=== PATIENT | female | born 1990 | race Caucasian/White ===

== ENCOUNTER 2022-01-17 13:59 | Observation (INO) | payer OTHER, SELFPAY ==
[2022-01-17] VITALS (34 sets, daily range): BP systolic 90–138; BP diastolic 56–100; PULSE 74–114; RESP 14–22; TEMP 36.3–36.9; O2SAT 95–100
--- NOTE | ~2022-01-17 | US_ITS ---
EXAMINATION: US OB <= 14 weeks fetus DATE: 01/17/2022 15:34 INDICATION: Assess for ectopic during first trimester TECHNIQUE: Real-time pelvic ultrasound utilizing transvaginal probe was performed. The interpreting r adiologist was not present for the study. COMPARISON: None. FINDINGS: The uterus measures 8.2 x 5.2 x 5.8 cm. Thickened endometrial complex measuring 2.4 cm in thickness a t the fundus. No evident intrauterine gestational sac. The right ovary is not visualized with right a dnexal region obscured by shadowing bowel gas. The left ovary measures 3.4 x 2.1 x 2.5 cm. 2.6 x 1.6 x 1.9 cm anechoic cystic lesion at the left adnexa without definitive internal yolk sac or pole differential would include either a corpus luteum cyst. Massive flow with arterial and venous wavefo darleen identified at the left ovary on color Doppler. There is small amount of hypoechoic material at th e cul-de-sac which could represent complex fluid/hemoperitoneum. free fluid in the pelvis. IMPRESSION: 1. Thickened endometrial complex with no discernible internal gestational sac. Differential would inc lude early, failed or ectopic . Recommend gynecologic consultation and consider correlation with serial beta-hCG levels. 2. 2.6 cm cystic lesion at the left adnexa without evident internal yolk sac or pole which coul d represent a corpus luteum cyst although differential would include an ectopic . The region of the right adnexa is obscured. 3. Small amount of likely complex fluid in the cul-de-sac suspicious for hemoperitoneum.. Reviewed, dictated and finalized at location A. IMPRESSION: 1. Thickened endometrial complex with no discernible internal gestational sac. Differential would include early, failed or ectopic . Recommend gyneco logic consultation and consider correlation with serial beta-hCG levels. 2. 2.6 cm cystic lesion at the left adnexa without evident internal yolk sac or pole which could represent a corpus luteum cyst although differential wo uld include an ectopic . The region of the right adnexa is obscured. 3. Small amount of likely complex fluid in the cul-de-sac suspicious for hemope ritoneum..
--- NOTE | 2022-01-17 16:15 | PC.NURSE ---
unable to doppel FHR
--- NOTE | 2022-01-17 16:32 | ED.ABDPAIN ---
HPI - Abdominal Pain General Chief Complaint: Abdominal Pain Stated Complaint: abd pain, vag bleeding, 7 wks preg Time Seen by Provider: 01/17/22 16:14 Source: patient Mode of arrival: ambulatory Limitations: no limitations History of Present Illness HPI narrative: Patient is a 31-year-old female G4, P3 currently 7 weeks dated by last menstrual period presenting to the emergency department for evaluation of worsening right-sided lower abdominal pain and vaginal bleeding. Patient states that she has had significant right-sided lower abdominal pain and pelvic pain over the past 4 days. Pain is sharp in nature, severe in nature with radiation to the flank. She also reports radiation into her hip area. She denies any fever, chills, but does report nausea with worsening of the pain. She denies dysuria or hematuria. She reports vaginal bleeding with passage of blood clots. She denies brisk bleeding. Patient states she has had only some light spotting today. Patient was seen at [facility] and had only a small increase in her beta hCG. She had an inconclusive ultrasound. Patient was referred to this facility by Dr. 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 Related Data Allergies Allergy/AdvReac Type Severity Reaction Status Date / Time dextromethorphan Allergy Intermediate DISORIENTED, Verified 07/26/21 14:03 WEAK doxylamine Allergy Intermediate DISORIENTED, Verified 07/26/21 14:03 WEAK pseudoephedrine Allergy Intermediate DISORIENTED, Verified 07/26/21 14:03 WEAK tomato Allergy Mild TONGUE Verified 07/26/21 14:03 SWELLS adhesive Allergy Unknown INLFAMED Verified 07/26/21 14:03 AND SWOLLEN Review of Systems Review of Systems: CONSTITUTIONAL: Denies fever, chills, or sweats. CARDIOVASCULAR: Denies chest pain, palpitations, or edema. RESPIRATORY: Denies cough or dyspnea. GASTROINTESTINAL: Reports right-sided lower abdominal pain, nausea without vomiting, reports right lower pelvic pain and right flank pain. GENITOURINARY: Denies dysuria or hematuria. Reports vaginal bleeding. SKIN: Denies rash or itching. MUSCULOSKELETAL: Denies back pain, joint pain, or myalgia. NEUROLOGIC: Denies headache, numbness, or weakness. 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 Chronic cholecystitis Depression affecting Encounter for contraceptive surveillance Encounter for counseling regarding contraception Encounter for gynecological examination (general) (routine) without abnormal findings Encounter for other specified surgical aftercare Encounter for visit Encounter for test, result positive Encounter for supervision of normal first , first trimester Encounter for supervision of normal first , second trimester Encounter for supervision of normal in second trimester Encounter for supervision of normal in third trimester Encounter for surgical aftercare following surgery of digestive system Generalized anxiety disorder Group beta Strep positive Irregular menstruation anxiety Supervision of other high risk pregnancies, first trimester Supervision of other high risk pregnancies, second trimester Umbilical hernia with obstruction, without gangrene (05/07/18) Umbilical hernia without obstruction or gangrene Vaginal itching Yeast infection Family History Family History Mother Family history of diabetes mellitus in first degree relative Hypertension Asthma Family history of liver disease Diabetes mellitus Sibling Family history of diabetes mellitus in first degree relative Hypertension Diabetes mellitus Grandparent Family history of malignant neoplasm of male breast
[2022-01-17 16:57] LABS: Basophils Absolute Auto 0.1 K/mm3 (0.0-0.1); Basophils Percent Auto 0.4 % (0.2-1.2); Eosinophils Absolute Auto 0.1 K/mm3 (0-0.3); Eosinophils Percent Auto 0.8 % (0-4.4); Hematocrit 41.9 % (37.0-47.0); Hemoglobin 14.2 g/dL (12.0-15.0); Immature Granulocyte Absolute 0.07 K/mm3 (0.00-0.031); Immature Granulocyte Percent A 0.4 % (0-0.5); Lymphocytes Absolute Auto 2.01 K/mm3 (0.9-3.2); Lymphocytes Percent Auto 11.9 % (18.3-44.2); Mean Corpuscular HGB Conc 33.9 g/dl (32-36); Mean Corpuscular Hemoglobin 30.1 pg (26-34); Mean Platelet Volume 9.9 fl (7.4-10.4); Monocytes Absolute Auto 0.8 K/mm3 (0.1-0.6); Monocytes Percent Auto 4.7 % (2.6-8.5); Neutrophils Absolute Auto 13.8 K/mm3 (1.3-6.7); Neutrophils Percent Auto 81.8 % (45.5-73.1); Platelet Count Result 368 k/mm3 (150-375); Red Blood Count 4.71 M/mm3 (4.2-5.4); White Blood Count 16.9 K/mm3 (4.5-10.0)
--- NOTE | 2022-01-17 16:58 | PM.IMHP ---
H&P: HPI History of Present Illness Date/Time: 01/17/22 16:58 Chief Complaint: abdominal pain Narrative: Madisyn is a 31yo , LMP 11/30/21 who presented to the ER with acute onset RLQ pain. She has been having bleeding on and off. Went to [facility] on 01/14/22 where beta was 633 and US showed empty uterus w/ 2cm left simple cyst. Repeat beta on 01/16/22 was 700. She acutely developed RLQ pain this afternoon and was instructed by our office to come to the ER. US today shows thickened endometrium, with 2.6cm left adnexal cyst (no yolk sac or pole), with complex hemoperitoneum. She has not eaten anything today. 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 Chronic cholecystitis Depression affecting Encounter for contraceptive surveillance Encounter for counseling regarding contraception Encounter for gynecological examination (general) (routine) without abnormal findings Encounter for other specified surgical aftercare Encounter for visit Encounter for test, result positive Encounter for supervision of normal first , first trimester Encounter for supervision of normal first , second trimester Encounter for supervision of normal in second trimester Encounter for supervision of normal in third trimester Encounter for surgical aftercare following surgery of digestive system Generalized anxiety disorder Group beta Strep positive Irregular menstruation anxiety Supervision of other high risk pregnancies, first trimester Supervision of other high risk pregnancies, second trimester Umbilical hernia with obstruction, without gangrene (05/07/18) Umbilical hernia without obstruction or gangrene Vaginal itching Yeast infection Family History Family History Mother Family history of diabetes mellitus in first degree relative Hypertension Asthma Family history of liver disease Diabetes mellitus Sibling Family history of diabetes mellitus in first degree relative Hypertension Diabetes mellitus Grandparent Family history of malignant neoplasm of male breast Diabetes mellitus Family history of malignant neoplasm Other Family history of allergic disorder Social History Social History Smoking status: Never smoker Second hand tobacco smoke exposure: No Alcohol intake: never Meds Home Medications and Allergies Allergies Allergy/AdvReac Type Severity Reaction Status Date / Time dextromethorphan Allergy Intermediate DISORIENTED, Verified 07/26/21 14:03 WEAK doxylamine Allergy Intermediate DISORIENTED, Verified 07/26/21 14:03 WEAK pseudoephedrine Allergy Intermediate DISORIENTED, Verified 07/26/21 14:03 WEAK tomato Allergy Mild TONGUE Verified 07/26/21 14:03 SWELLS adhesive Allergy Unknown INLFAMED Verified 07/26/21 14:03 AND SWOLLEN Vital Signs Vital Signs - 24 hr 01/17/22 14:10 01/17/22 16:16 Temperature 97.3 F L Pulse Rate 107 H 86 Respiratory Rate 16 16 Blood Pressure 126/80 Pulse Oximetry 100 100 Oxygen Delivery Room Air Exam Const: General: cooperative and acute distress moderate Resp: Effort & Inspection: normal respiratory effort Cardio: Rate: regular rate GI: Inspection: distended GI Palp: Yes abdominal tenderness and Yes Soft to palpation : Speculum Exam - Vagina: vaginal bleeding Skin: General skin exam: normal color Neuro: General: patient oriented x3 Extrem: General: normal to inspection Psych: Appearance: grossly no
[2022-01-17 17:07] LABS: Alanine Aminotransferase 30 U/L (6-35); Albumin Level 4.6 g/dL (3.5-5.1); Alkaline Phosphatase 73 U/L (38-126); Anion Gap 12 mmol/L (8-16); Aspartate Amino Transferase 28 U/L (14-36); Bilirubin,Total 0.4 mg/dL (0.2-1.3); Blood Urea Nitrogen 13 mg/dL (7-17); Calcium 9.3 mg/dL (8.4-10.2); Carbon Dioxide 24 mmol/L (22-30); Chloride 99 mmol/L (98-107); Estimated CRCL calculation 108 ml/min; Estimated Glomerular Filt Rate > 60; Glucose 97 mg/dL (65-110); Potassium 3.5 mmol/L (3.4-5.0); Prothrombin Time 12.6 Seconds (11.1-14.7); Sodium 135 mmol/L (137-145)
[2022-01-17 17:08] LABS: Partial Thromboplastin Time 29.3 SECONDS (22.3-36.8)
--- NOTE | 2022-01-17 17:11 | WPDANESEPP ---
Anes - Eval Pre Procedure Procedure: Operation Date: 01/17/22 17:15 Proposed Procedures p Diagnostic Laparoscopy; Suction Dilation and Curettage - Madisyn Lomax MD Date/Time: 01/17/22 17:11 Pre Op Diagnosis: abd pain, vag bleeding, 7 wks preg Patient Data Age: 31 Gender: F Height: 1.52 m Weight: 82 kg Last Vital Signs Temp 36.3 C L 01/17/22 16:16 Pulse 86 01/17/22 16:16 Resp 16 01/17/22 16:16 BP 126/80 01/17/22 16:16 Pulse Ox 100 01/17/22 16:16 O2 Del Method Room Air 01/17/22 14:10 Allergies Allergy/AdvReac Type Severity Reaction Status Date / Time dextromethorphan Allergy Intermediate DISORIENTED, Verified 07/26/21 14:03 WEAK doxylamine Allergy Intermediate DISORIENTED, Verified 07/26/21 14:03 WEAK pseudoephedrine Allergy Intermediate DISORIENTED, Verified 07/26/21 14:03 WEAK tomato Allergy Mild TONGUE Verified 07/26/21 14:03 SWELLS adhesive Allergy Unknown INLFAMED Verified 07/26/21 14:03 AND SWOLLEN Laboratory Tests 01/17/22 01/17/22 01/17/22 16:48 16:48 16:49 WBC 16.9 K/mm3 H K/mm3 (4.5-10.0) RBC 4.71 M/mm3 M/mm3 (4.2-5.4) Hgb 14.2 g/dL g/dL (12.0-15.0) Hct 41.9 % % (37.0-47.0) MCV 89.0 fl fl (80-100) MCH 30.1 pg pg (26-34) MCHC 33.9 g/dl g/dl (32-36) RDW 13.0 % % (11.5-14.5) Plt Count 368 k/mm3 k/mm3 (150-375) MPV 9.9 fl fl (7.4-10.4) Immature Gran % (Auto) 0.4 % % (0-0.5) Neut % (Auto) 81.8 % H % (45.5-73.1) Lymph % (Auto) 11.9 % L % (18.3-44.2) [place] % (Auto) 4.7 % % (2.6-8.5) Eos % (Auto) 0.8 % % (0-4.4) Baso % (Auto) 0.4 % % (0.2-1.2) Lymph # (Auto) 2.01 K/mm3 K/mm3 (0.9-3.2) [place] # (Auto) 0.8 K/mm3 H K/mm3 (0.1-0.6) Eos # (Auto) 0.1 K/mm3 K/mm3 (0-0.3) Baso # (Auto) 0.1 K/mm3 K/mm3 (0.0-0.1) Abs Immat Gran (auto) 0.07 K/mm3 H K/mm3 (0.00-0.031) Absolute Neuts (auto) 13.8 K/mm3 H K/mm3 (1.3-6.7) Absolute Nucleated RBC 0.0 K/mm3 K/mm3 (0.0-0.012) Nucleated RBC % 0.0 % % (0.0-0.2) PT 12.6 Seconds Seconds (11.1-14.7) INR 1.0 APTT 29.3 SECONDS SECONDS (22.3-36.8) Sodium 135 mmol/L L mmol/L (137-145) Potassium 3.5 mmol/L mmol/L (3.4-5.0) Chloride 99 mmol/L mmol/L (98-107) Carbon Dioxide 24 mmol/L mmol/L (22-30) Anion Gap 12 mmol/L mmol/L (8-16) BUN 13 mg/dL mg/dL (7-17) Creatinine 0.60 mg/dL L mg/dL (0.7-1.0) Estim Creat Clear Calc 108 ml/min ml/min Estimated GFR > 60 (59 - ) Glucose 97 mg/dL mg/dL (65-110) Calcium 9.3 mg/dL mg/dL (8.4-10.2) Total Bilirubin 0.4 mg/dL mg/dL (0.2-1.3) AST 28 U/L U/L (14-36) ALT 30 U/L U/L (6-35) Alkaline Phosphatase 73 U/L U/L (38-126) Total Protein 8.0 g/dL g/dL (6.3-8.2) Albumin 4.6 g/dL g/dL (3.5-5.1) Beta HCG, Quant Pending Patient hx anesthesia problems: none Family hx anesthesia problems: none Results Review: All pre-operative results and documents have been reviewed as part of the pre-operative evaluation. 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
--- NOTE | 2022-01-17 17:17 | WPDHPUPDATE1 ---
History and Physical Update Update Date/Time: 01/17/22 17:17 History and Physical has been reviewed, including an updated exam of the patient. There are NO changes in the patient's condition. Risks, benefits, and alternatives have been discussed and questions answered. Patient agrees to proceed with procedure.
[2022-01-17] MEDS: SODIUM CHLORIDE 0.9% IV 1,000 ML 999 ML IV CONT (17:33)
--- NOTE | 2022-01-17 17:33 | PC.NURSE ---
Pt did not want pain meds at this time
--- NOTE | 2022-01-17 17:41 | P.PNAN_ITS ---
Anes - Eval Final PreProcedure Day of Procedure 01/17/22 17:41 Patient weight: obese Heart: regular rate and rhythm Lungs: clear to auscultation Airway: Mallampati scale class II Neurological: alert and oriented Last oral intake: >/= 8 hours ASA classification: III Emergent: no Anesthetic plan: proceed Anesthesia type and monitoring: general ETT and standard monitoring Results Review: All pre-operative results and documents have been reviewed as part of the pre- operative evaluation. Informed Consent: The patient's anesthetic plan and its attendant risks and benefits were discussed with the patient/family/POA. Questions were solicited and answers provided to the satisfaction of the patient/family/POA.
[2022-01-17] MEDS: SCOPOLAMINE 1.5 MG PATCH TRANSDERM (18:00)
[2022-01-17] MEDS: BUPIVACAINE/EPINEPHRINE 0.25% 50 ML VIAL 30 ML INFILTRATE (18:23)
[2022-01-17] MEDS: LACTATED RINGERS 1,000 ML 30 ML IV CONT ×2 (18:58)
--- NOTE | 2022-01-17 19:04 | W.PM.PROC2 ---
Procedure Note - Detailed Date of Procedure 01/17/22 Pre-op Diagnosis abd pain, vag bleeding, 7 wks preg Post-op Diagnosis Other (ruptured ectoptic ) Procedure Performed Laparoscopic right salpingectomy and removal of ectopic with suction D&C Surgeon Madisyn Lomax MD Globe [employer] Dominguez Anesthesia General Indications Madisyn is a 31yo , LMP 11/30/21 who presented to the ER with acute onset RLQ pain. She has been having bleeding on and off. Went to [facility] ER on 01/14/22 where beta was 633 and US showed empty uterus w/ 2cm left simple cyst. Repeat beta on 01/16/22 was 700. She acutely developed RLQ pain this afternoon and was instructed by our office to come to the ER. US today shows thickened endometrium, with 2.6cm left adnexal cyst (no yolk sac or pole), with complex hemoperitoneum concerning for ruptured ectopic. Findings Uterus sounded to 11cm, cervix 0.5cm dilated with vaginal bleeding. Multiple omental adhesions to the upper abdomen. Hemoperitoneum of ~50cc, right fallopian tube ectopic and bleeding from the fimbriated end. Suction D&C performed w/o issue; 3 passes made. Good hemostasis at end of case. Description of Procedure Madisyn was taken to the operating room where she was placed under general endotracheal anesthesia without complications. She was then prepped and draped in the usual sterile fashion in the dorsal lithotomy position with her arms tucked at her side and a strap over her chest. A time-out was performed and no preoperative antibiotics were indicated. A straight catheterization was performed. A bivalve speculum was placed in the vagina and the cervix was easily identified. The anterior lip of the cervix was grasped with a single-tooth tenaculum. The cervix was serially dilated and the uterus was then sounded. A diagnostic uterine manipulator was then placed without complications. My gloves were then changed and my attention was turned to the abdomen. An umbilical incision was made. A 5 mm trocar was placed under direct visualization without complications. Once abdominal placement was confirmed the abdomen was insufflated with carbon dioxide gas. Multiple omental adhesions were noted in the upper abdomen. The patient was then placed in steep Trendelenburg where the hemoperitoneum was then noted. Two additional 5mm ports were placed in the right and left lower quadrant under direct visualization without complications. The uterus was elevated, and the right fallopian tube was noted to be bleeding with the ectopic . The proximal fallopian tube was grasped with the LigaSure device, cross clamped, coagulated, and transected. The mesosalpinx was then serially clamped, coagulated and transected. The fallopian tube was then free. The left lower quadrant port was upsized to a 12mm. A bag was placed within the abdomen and the right fallopian tube with ectopic was placed within the bag. The bag containing the tube and ectopic were then removed from the abdomen without complications. The surgical site was examined and good hemostasis was noted. The pelvis was then irrigated and suctioned free of all clot and debris. All instruments were removed from the abdomen. The pneumoperitoneum was released. The 3 laparoscopic incisions were closed using 4 -0 Monocryl in a running subcuticular fashion. The incisions were then covered with Dermabond and infiltrated using 0.25% Marcaine with epinephrine for better pain control. Attention was then turned down below where the uterine manipulator was removed. A bivalve speculum was placed within the vagina. The cervix was grasped with a tenaculum. The cervix was serially dilated. A curved 7 [place] suction curettage was then placed within the uterine cavity. Once suction was applied, a significant amount of clots and debris were removed from the uterus. Two additional passes were made and no further clots or debris were noted. Paulo
[2022-01-17] MEDS: fentaNYL CITRATE INJ (*CRX) 100 MCG/2 ML VIAL 25 MCG IV PUSH ×6 (19:15→19:25)
[2022-01-17] MEDS: HYDROmorphone HCL INJ (*CRX) 1 MG/ML SYR 0.5 MG IV PUSH ×2 (19:35→19:43)
[2022-01-17] MEDS: DOXYCYCLINE HYCLATE 100 MG TABLET 200 MG PO (19:58)
--- NOTE | 2022-01-17 20:31 | PC.NURSE ---
pt to 1st floor L&D from PACU @2010
--- NOTE | 2022-01-17 20:49 | PC.NURSE ---
SCD's applied to bilateral lower extremities.
[2022-01-17] MEDS: KETOROLAC 30 MG/ML VIAL (*BKC) IV PUSH (21:24)
[2022-01-18 01:09] VITALS: PULSE 114; O2SAT 99
[2022-01-18 01:10] VITALS: BP 112/61; PULSE 105
[2022-01-18] MEDS: HYDROcodone/acetaminophen (*CRX) 5-325 MG TABLET 1 TAB PO (01:16)
[2022-01-18] MEDS: KETOROLAC 30 MG/ML VIAL (*BKC) IV PUSH (03:22)
[2022-01-18 05:13] VITALS: BP 98/58; PULSE 93; PULSE 95; O2SAT 99
[2022-01-18 05:16] VITALS: TEMP 36.9
[2022-01-18] MEDS: DOCUSATE SODIUM 100 MG CAPSULE PO (07:37)
[2022-01-18] MEDS: HYDROcodone/acetaminophen (*CRX) 10-325 MG TABLET 1 TAB PO ×2 (07:37→11:55)
[2022-01-18 08:24] VITALS: PULSE 94; O2SAT 99
[2022-01-18 08:25] VITALS: BP 103/56; PULSE 87; PULSE 91; PULSE 92; RESP 15; TEMP 37.3; O2SAT 100; O2SAT 96
[2022-01-18] MEDS: PHENOL/SOD PHENO SPRAY CHERRY (*BKC) 1 SPRAY MUCOUS MEM (08:52)
--- NOTE | 2022-01-18 09:09 | PM.GYNPNOP ---
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 and plan (1) S/P laparoscopic procedure: Code(s): Z98.890 - Other specified postprocedural states Status: Acute (2) Ruptured ectopic : Code(s): O00.90 - Unspecified ectopic without intrauterine Status: Acute Postoperative Procedures: Procedures Operation Date: 01/17/22 17:15 Actual Procedure Side Surgeon p Diagnostic Laparoscopy with Right Salpingectomy and Removal of Ectopic , Suction Dilation and Curettage Madisyn Lomax MD Postoperative day: 1 Postoperative status: doing well Postoperative plan: routine post-op care and discharge Time Spent With Patient Time: Total time spent is greater than 50% in coordination of care (as documented) at patient's floor/unit and/or counseling patient: Time with patient: less than 15 minutes TANK TRUCK ENGINE MECHANIC- PN:Subj Post-Op Subjective Date/time seen: 01/18/22 09:09 Interval history: POD #1 Madisyn reports doing well this morning. Her pain is much less than last night. She has tolerated regular diet. She has voided. She has ambulated w/o s/sx of anemia. 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 Review of Systems Constitutional: Constitutional: Denies chills, Denies fever(s) and Denies headache(s) Eyes: Eyes: Denies change in vision ENT: Denies dizziness and Denies headache(s) Cardiovascular: Cardiovascular: Denies chest pain, Denies palpitations and Denies dyspnea Respiratory: Respiratory: Denies cough and Denies dyspnea Gastrointestinal: Gastrointestinal: Denies nausea and Denies vomiting Neurologic: Denies dizziness and Denies headache(s) Endocrine: Endocrine: Denies palpitations Exam Const: General: cooperative, comfortable and no acute distress Nutritional Appearance: obese Orientation/consciousness: patient oriented x3 Resp: Effort & Inspection: normal respiratory effort Cardio: Rate: regular rate GI: Inspection: non-distended and incision (x3, c/d/i covered w/ dermabond) GI Palp: No abdominal tenderness and Yes Soft to palpation : Other: normal vaginal bleeding Skin: General skin exam: normal color Neuro: General: patient oriented x3 Extrem: General: normal to inspection Psych: Appearance: grossly normal Affect: normal affect Attitude: cooperative TANK TRUCK ENGINE MECHANIC - PN: Obj Data Vital Signs Vital Signs: Vital Signs - 24 hr 01/17/22 14:10 01/17/22 16:16 01/17/22 16:20 Temperature 97.3 F L Pulse Rate 107 H 86 Respiratory Rate 16 16 Blood Pressure 126/80 Pulse Oximetry 100 100 98 Oxygen Delivery Room Air Oxygen Flow Rate 01/17/22 16:21 01/17/22 17:01 01/17/22 17:16 Temperature Pulse Rate Respiratory Rate Blood Pressure 123/85 130/96 H 135/100 H Pulse Oximetry 98 Oxygen Delivery Oxygen Flow Rate 01/17/22 17:31 01/17/22 17:42 01/17/22 18:58 Temperature 98.3 F 98.3 F 98 F Pulse Rate 74 93 Respiratory Rate 16 22 H Blood Pressure 138/91 H 106/57 L Pulse Oximetry 100 100 Oxygen Delivery Simple Face Mask Oxygen Flow Rate 10 01/17/22 19:00 01/17/22 19:15 01/17/22 19:30 Temperature Pulse Rate 98 90 106 H Respiratory Rate 18 16 15 Blood Pressure 109/60 110/79 115/75 Pulse Oximetry 100 100 98 Oxygen Delivery Simple Face Mask Room Air Room Air Oxygen Flow Rate 10 01/17/22 19:45 01/17/22 19:55 01/17/22 20:00 Temperature Pulse Rate 80 99 98 Respiratory Rate 14 14 18 Blood Pressure 106/69 107/68 105/64 Pulse Oximetry 96 99 99 Oxygen Delivery Room Air Room Air Room Air Oxygen Flow Rate 01/17/22 20:19 01/17/22 20:20 01/17/22 20:24 Temperature Pulse Rate 98 Respiratory Rate Blood Pressure 90/57 L Pulse Oximetry 96 96 Oxygen Delivery Oxygen Flow Rate 01/17/22 20:29 01/17/22 20:30 01/17/22 20:34 Temperature Pulse Rate 99 Respiratory Rate Blood Pressure 95/63 L Pulse Oximetry 96 98 Oxygen Delivery Oxygen Flow Rate 01/17/22 20:39 09/0
--- NOTE | 2022-01-18 09:52 | PC.NURSE ---
0950--Pt. reports that she is feeling better and would like to take a nap prior to DC home. Instructed pt. to call out when she is ready for me to go over DC paperwork with her.
[2022-01-18] MEDS: IBUPROFEN 600 MG TABLET PO (11:55)
--- NOTE | 2022-01-23 07:42 | P.DS_ITS ---
DS: Admitting Diagnosis Discharge Date 01/18/22 Admitting Diagnosis Vaginal bleeding of unknown location but concerned for ruptured ectopic DS: Discharge Diagnosis Discharge Diagnosis Plan same s/p salpingectomy with suction D&C DS: Summary Hospital Course Hospital Course: She was admitted for surgery. She underwent laparoscopic right salpingectomy due to ruptured ectopic and suction D&C due to thickened endometrium with vaginal bleeding (beta HCGs inappropriately rising). Surgery was uncomplicated. She stayed overnight for pain control. By next morning, her pain was controlled. She was voiding, ambulating and tolerating regular diet. Status at Discharge Functional status at discharge: independent ambulation Overall status at discharge: patient is back to baseline Time Spent with Patient Time attestation: Total time spent providing and/or coordinating discharge services: Exam Const: General: cooperative, comfortable and no acute distress Nutritional Appearance: obese Orientation/consciousness: patient oriented x3 Resp: Effort & Inspection: normal respiratory effort Auscultation: clear to auscultation bilaterally Cardio: Rate: regular rate GI: Inspection: non-distended and incision (x3; C/D/I covered with dermabond) GI Palp: Yes abdominal tenderness (appropriate) and Yes Soft to palpation Auscultation: normal bowel sounds : Other: very light bleeding on pad Skin: General skin exam: normal color Neuro: General: patient oriented x3 Extrem: General: normal to inspection Psych: Appearance: grossly normal Affect: normal affect Attitude: c ooperative DS: Data Data Completed and Pending Completed studies during hospitalization: Pending at discharge 01/17/22 18:49 Surgical [PTH] Routine Surgical [PTH] Routine Discharge Plan Discharge Attending physician on discharge: Madisyn Lomax Consulting providers: Jl Spears Discharging Clinician: Madisyn Lomax Anticipated Discharge Date/Time: 01/18/22 10:00 Patient Disposition: Home, Self-Care Activity: may shower and pelvic rest Diet: as tolerated and regular Discharge Instructions: no heavy lifting over 10 pounds for 2 weeks Stand Alone Forms: General Discharge Information, Work/School Release IP Follow-up/Referrals: Amanda,KAREEM Bass [Primary Care Provider] - Discharge Medications: New hydrocodone-acetaminophen 5-325 mg Tablet 1 tablet PO Q3H PRN (Reason: Pain Rated 5 Or Less) 3 Days Qty: 20 0RF docusate sodium 100 mg Capsule 100 mg PO BID 10 Days Qty: 20 0RF ibuprofen 600 mg Tablet 600 mg PO Q6H PRN (Reason: Cramping) 10 Days Qty: 40 0RF ibuprofen 800 mg tablet 800 mg PO TID Qty: 40 0RF docusate sodium [Colace] 100 mg capsule 100 mg PO BID Qty: 20 0RF hydrocodone-acetaminophen 5-325 mg tablet 1 tablet PO Q4H PRN (Reason: pain) 3 Days Qty: 18 0RF hydrocodone-acetaminophen 5-325 mg tablet 1 tablet PO Q4H PRN (Reason: pain) 3 Days Qty: 18 0RF Date of admission: 01/17/22 20:06 Primary Care Provider: AmandaShelia Admitting Provider: Madisyn Lomax Attending physician on admission: Madisyn Lomax Condition: Stable
== END 2022-01-18 12:02 | disposition home or self-care (01) ==
LOC: ANHED 16:20 → ANHSURGERY 16:56 → ANHOBPP 20:11
PROVIDERS: Admitting Provider Obstetrics & Gynecology; Emergency Provider Emergency Medicine; PCP Nurse Practitioner Adult Health; Visit Provider Obstetrics & Gynecology
PROC: (CPT 49320; principal; 2022-01-17 17:15)
DX: O00.101 Right tubal pregnancy without intrauterine pregnancy (principal); K66.1 Hemoperitoneum; Z3A.01 Less than 8 weeks gestation of pregnancy
CPT/HCPCS: 59151; 36415; 76801; 80053; 84702; 85025; 85461; 85610; 85730; 88302; 88305; 96361; 96374; 96375; 99285; A9270; G0378; G0379; J0330; J1170; J1885; J2250; J2405; J2704; J3010; J7030; J7120

== ENCOUNTER 2022-11-10 04:44 | Emergency (ER) | payer OTHER, SELFPAY ==
--- NOTE | ~2022-11-10 | US_ITS ---
US OB <=14 wk fetus w TV DATE: 11/10/2022 07:53 INDICATION: Rule out ectopic ; history of right salpingectomy for ectopic , Septemb er 2021 TECHNIQUE: Real-time imaging via transabdominal and transvaginal approaches COMPARISON: 01/17/2022 pelvic ultrasound nd FINDINGS: The uterus measures approximately 10 cm height, 4.6 cm AP dimension. There is mild free fluid including probable blood clot in the posterior cul-de-sac. There is an irregular fluid containing structure in the endometrial cavity of the uterus, measuring a pproximately 7 x 11 x 9 mm. There is irregular surrounding hyperechogenicity. This is a nonspecific f luid collection and might represent an abnormal or failed gestational sac versus nonspecific endometr ial fluid. The ovaries are not well-defined. IMPRESSION: Mild free fluid including blood in the posterior cul-de-sac. Ovaries and adnexal areas are not well-defined. Nonspecific irregular fluid collection in the endometrial cavity. Ectopic gestation with some bleeding cannot be excluded. Reviewed, dictated and finalized at [facility]. Reviewed, dictated and finalized at location [facility].
[2022-11-10 04:48] VITALS: BP 135/79; PULSE 98; RESP 18; TEMP 36.3; O2SAT 100
--- NOTE | 2022-11-10 04:53 | ED.GENADULT ---
HPI - General Adult General Chief complaint: Vaginal Bleeding <Jorge Matos MD - Last Filed: 11/11/22 18:14> Stated complaint: approx 7 weeks , pain and bleeding <Jorge Matos MD - Last Filed: 11/11/22 18:14> Time Seen by Provider: 11/10/22 04:51 <Jorge Matos MD - Last Filed: 11/11/22 18:14> History of Present Illness HPI narrative: 32-year-old female presented to the emergency department for evaluation of vaginal bleeding. Patient states she suspects she is approximately 7 weeks . Patient reports she has had some abdominal cramping with some spotting. Patient reports she does have a prior history of loss of number. Patient's blood type is O+ per EMR. <Jorge Matos MD - Last Filed: 11/11/22 18:14> Related Data Allergies/adverse reactions: Allergies Allergy/AdvReac Type Severity Reaction Status Date / Time dextromethorphan Allergy Intermediate DISORIENTED, Verified 11/11/22 14:25 WEAK doxylamine Allergy Intermediate DISORIENTED, Verified 11/11/22 14:25 WEAK pseudoephedrine Allergy Intermediate DISORIENTED, Verified 11/11/22 14:25 WEAK tomato Allergy Mild TONGUE Verified 11/11/22 14:25 SWELLS adhesive Allergy Unknown INLFAMED Verified 11/11/22 14:25 AND SWOLLEN dermabond Allergy Intermediate Rash Uncoded 11/10/22 04:45 <Jorge Matos MD - Last Filed: 11/11/22 18:14> Review of Systems Review of Systems: All systems reviewed & are unremarkable except as noted in HPI and below <Jorge Matos MD - Last Filed: 11/11/22 18:14> PMFSH Past Medical History Medical History: Medical History Anemia affecting Asthma Bacterial vaginosis Body mass index [BMI] 28.0-28.9, adult (07/08/17) 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 Chronic cholecystitis Depression affecting Encounter for contraceptive surveillance Encounter for counseling regarding contraception Encounter for gynecological examination (general) (routine) without abnormal findings Encounter for other specified surgical aftercare Encounter for visit Encounter for test, result positive Encounter for supervision of normal first , first trimester Encounter for supervision of normal first , second trimester Encounter for supervision of normal in second trimester Encounter for supervision of normal in third trimester Encounter for surgical aftercare following surgery of digestive system Generalized anxiety disorder Group beta Strep positive Irregular menstruation anxiety Seizure Supervision of other high risk pregnancies, first trimester Supervision of other high risk pregnancies, second trimester Umbilical hernia with obstruction, without gangrene (05/07/18) Umbilical hernia without obstruction or gangrene Vaginal itching Yeast infection <Jorge Matos MD - Last Filed: 11/11/22 18:14> Family History Family History: Family History Mother Family history of diabetes mellitus in first degree relative Hypertension Asthma Family history of liver disease Diabetes mellitus Sibling Family history of diabetes mellitus in first degree relative Hypertension Diabetes mellitus Grandparent Family history of malignant neoplasm of male breast Diabetes mellitus Family history of malignant neoplasm Other Family history of allergic disorder <Jorge Matos MD - Last Filed: 11/11/22 18:14> Social History Social History: Social History Smoking status: Never smoker Second hand tobacco smoke exposure: No Alcohol intake: never <Jorge Matos MD - Last Filed: 11/11/22 18:14> Exam Narrative: APPEARANCE: Well appearing, no pain, no distress, well-nourished
[2022-11-10] MEDS: SODIUM CHLORIDE 0.9% IV 1,000 ML 999 ML IV CONT (05:07)
[2022-11-10 05:15] LABS: Basophils Absolute Auto 0.1 K/mm3 (0.0-0.1); Basophils Percent Auto 0.5 % (0.2-1.2); Eosinophils Absolute Auto 0.2 K/mm3 (0-0.3); Eosinophils Percent Auto 1.7 % (0-4.4); Hematocrit 40.3 % (37.0-47.0); Hemoglobin 13.2 g/dL (12.0-15.0); Immature Granulocyte Absolute 0.05 K/mm3 (0.00-0.031); Immature Granulocyte Percent A 0.5 % (0-0.5); Lymphocytes Absolute Auto 3.17 K/mm3 (0.9-3.2); Lymphocytes Percent Auto 29.1 % (18.3-44.2); Mean Corpuscular HGB Conc 32.8 g/dl (32-36); Mean Corpuscular Hemoglobin 30.2 pg (26-34); Mean Corpuscular Volume 92.2 fl (80-100); Monocytes Absolute Auto 0.7 K/mm3 (0.1-0.6); Monocytes Percent Auto 6.6 % (2.6-8.5); Neutrophils Absolute Auto 6.7 K/mm3 (1.3-6.7); Neutrophils Percent Auto 61.6 % (45.5-73.1); Platelet Count Result 338 k/mm3 (150-375); Red Blood Count 4.37 M/mm3 (4.2-5.4); Red Cell Distribution Width 13.4 % (11.5-14.5); White Blood Count 10.9 K/mm3 (4.5-10.0)
[2022-11-10 05:20] LABS: Appearance Urine Cloudy (Clear); Bacteria Urine 2+ /hpf; Bilirubin Urine Negative (Negative); Blood Urine 3+ (Negative); Color Urine Yellow (Yellow); Glucose Urine UA Negative (Negative); Ketones Urine Negative (Negative); Leukocyte Esterase Ur Trace LEU/UL (Negative); Nitrate Urine Negative (Negative); Non Pathogenic Casts 0-2; Protein Urine 1+ mg/dL (Negative); Specific Grav Ur 1.022 (1.001-1.035); Squamous Epithelial Cell Urine Moderate /hpf (Few); pH Urine 5.5 (5.0-9.0)
[2022-11-10 05:27] LABS: Alanine Aminotransferase 26 U/L (6-35); Albumin Level 4.3 g/dL (3.5-5.1); Alkaline Phosphatase 63 U/L (38-126); Anion Gap 9 mmol/L (8-16); Aspartate Amino Transferase 25 U/L (14-36); Bilirubin,Total 0.3 mg/dL (0.2-1.3); Blood Urea Nitrogen 8 mg/dL (7-17); Carbon Dioxide 26 mmol/L (22-30); Chloride 104 mmol/L (98-107); Estimated CRCL calculation 114 ml/min; Estimated Glomerular Filt Rate > 60; Glucose 105 mg/dL (65-110); Potassium 3.5 mmol/L (3.4-5.0); Sodium 139 mmol/L (137-145)
[2022-11-10 05:28] LABS: Add Urine Microscopic? YES; INR 0.9; Prothrombin Time 12.4 Seconds (11.1-14.7)
[2022-11-10 05:29] LABS: Partial Thromboplastin Time 29.3 SECONDS (22.3-36.8)
[2022-11-10 05:43] VITALS: BP 109/83; PULSE 85; RESP 14; O2SAT 100
[2022-11-10] MEDS: HYDROmorphone HCL INJ (*CRX) 1 MG/ML SYR 0.5 MG IV PUSH (05:56)
[2022-11-10 10:14] VITALS: BP 127/85; PULSE 83; RESP 18; O2SAT 100
== END 2022-11-10 10:17 | disposition home or self-care (01) ==
PROVIDERS: Emergency Medicine; Emergency Provider Preventive Medicine Aerospace Medicine; PCP Obstetrics & Gynecology
DX: O20.9 Hemorrhage in early pregnancy, unspecified (principal); O99.511 Diseases of the respiratory system complicating pregnancy, first trimester; J45.909 Unspecified asthma, uncomplicated; O99.611 Diseases of the digestive system complicating pregnancy, first trimester; K81.1 Chronic cholecystitis; O99.341 Other mental disorders complicating pregnancy, first trimester; F41.9 Anxiety disorder, unspecified; F32.A Depression, unspecified; Z3A.01 Less than 8 weeks gestation of pregnancy
CPT/HCPCS: 36415; 76801; 76817; 80053; 81001; 84702; 85025; 85610; 85730; 87086; 96361; 96374; 99284; J1170; J7030

== ENCOUNTER 2022-11-11 13:43 | Emergency (ER) | payer OTHER, SELFPAY ==
[2022-11-11] VITALS (24 sets, daily range): BP systolic 98–125; BP diastolic 62–84; PULSE 90–97; RESP 16–18; TEMP 37; O2SAT 98–100
--- NOTE | ~2022-11-11 | US_ITS ---
EXAMINATION: US OB <=14 wk fetus w TV DATE: 11/11/2022 16:12 INDICATION: Pelvic pain TECHNIQUE: Real-time pelvic ultrasound utilizing both a transvaginal and transabdominal probe was pe rformed. The interpreting radiologist was not present for the study. COMPARISON: None. FINDINGS: The uterus measures 9.2 x 3.7 x 5.2 cm. The endometrial complex measures 1.7 cm in maximal thickness . There is a 4-5 mm anechoic cystic lesion at the posterior periphery of the endometrial complex at t he fundus, potentially an endometrial complex. No discernible internal yolk sac or pole which c ould be due to early stage of . section scar along the anterior lower uterine segme nt. The right ovary measures 3.0 x 1.3 x 2.0 cm. The left ovary measures 3.2 x 2.5 x 3.0 cm. There is a s mall amount of free fluid in the pelvis. IMPRESSION: 1. 4-5 mm anechoic cystic lesion at the posterior periphery of the endometrial complex without discer nible yolk sac or pole for which differential would remain early, failed or ectopic . Presuming this represents a gestational sac, this would correspond with an estimated gestational age of 5 weeks 0 day(s) +/- 3 day(s) with ultrasound estimated date of delivery (EYAD) of 07/14/2023. 2. Decreased small amount of free fluid in the pelvis. Reviewed, dictated and finalized at location A. IMPRESSION: 1. 4-5 mm anechoic cystic lesion at the posterior periphery of the endometrial complex without discernible yolk sac or pole for which differential would remain early, failed or ectopic . Presuming this represents a gestati onal sac, this would correspond with an estimated gestational age of 5 weeks 0 day(s) +/- 3 day(s) with ultrasound estimated date of delivery (EYAD) of 07/14/19 24. 2. Decreased small amount of free fluid in the pelvis.
[2022-11-11 15:09] LABS: Basophils Percent Auto 0.4 % (0.2-1.2); Eosinophils Absolute Auto 0.2 K/mm3 (0-0.3); Eosinophils Percent Auto 1.9 % (0-4.4); Hematocrit 37.2 % (37.0-47.0); Hemoglobin 12.4 g/dL (12.0-15.0); Immature Granulocyte Absolute 0.04 K/mm3 (0.00-0.031); Immature Granulocyte Percent A 0.4 % (0-0.5); Lymphocytes Absolute Auto 2.17 K/mm3 (0.9-3.2); Lymphocytes Percent Auto 22.3 % (18.3-44.2); Mean Corpuscular HGB Conc 33.3 g/dl (32-36); Mean Corpuscular Hemoglobin 30.4 pg (26-34); Mean Corpuscular Volume 91.2 fl (80-100); Mean Platelet Volume 10.2 fl (7.4-10.4); Monocytes Absolute Auto 0.7 K/mm3 (0.1-0.6); Monocytes Percent Auto 7.2 % (2.6-8.5); Neutrophils Absolute Auto 6.6 K/mm3 (1.3-6.7); Neutrophils Percent Auto 67.8 % (45.5-73.1); Platelet Count Result 302 k/mm3 (150-375); Red Blood Count 4.08 M/mm3 (4.2-5.4); Red Cell Distribution Width 13.5 % (11.5-14.5); White Blood Count 9.7 K/mm3 (4.5-10.0)
[2022-11-11] MEDS: MORPHINE SULFATE (*CRX) 2 MG/ML INJ IV PUSH (15:14)
[2022-11-11 15:19] LABS: Alanine Aminotransferase 30 U/L (6-35); Albumin Level 4.1 g/dL (3.5-5.1); Alkaline Phosphatase 57 U/L (38-126); Anion Gap 5 mmol/L (8-16); Aspartate Amino Transferase 26 U/L (14-36); Bilirubin,Total 0.4 mg/dL (0.2-1.3); Blood Urea Nitrogen 7 mg/dL (7-17); Calcium 9.3 mg/dL (8.4-10.2); Carbon Dioxide 29 mmol/L (22-30); Chloride 103 mmol/L (98-107); Estimated CRCL calculation 100 ml/min; Estimated Glomerular Filt Rate > 60; Glucose 100 mg/dL (65-110); Lipase 115 U/L (23-300); Potassium 3.6 mmol/L (3.4-5.0); Sodium 137 mmol/L (137-145)
--- NOTE | 2022-11-11 18:01 | ED.GENADULT ---
HPI - General Adult General Chief complaint: Abdominal Pain Stated complaint: abd pain//ectopic Time Seen by Provider: 11/11/22 14:34 History of Present Illness HPI narrative: Patient is a 32-year-old female who presents ER with lower abdominal pain. Seen in the ER yesterday and diagnosed with potentially ruptured ectopic. She had return of pain today and after talking to her OBs office she came back here for further evaluation due to possibility of having a laparoscopic procedure. Patient already does not have a right-sided ovarian tube due to previous ectopic. Patient reports she had some bright red blood yesterday but it is darker today coming from her vagina. No urinary frequency urgency or dysuria. Related Data Allergies Allergy/AdvReac Type Severity Reaction Status Date / Time dextromethorphan Allergy Intermediate DISORIENTED, Verified 11/11/22 14:25 WEAK doxylamine Allergy Intermediate DISORIENTED, Verified 11/11/22 14:25 WEAK pseudoephedrine Allergy Intermediate DISORIENTED, Verified 11/11/22 14:25 WEAK tomato Allergy Mild TONGUE Verified 11/11/22 14:25 SWELLS adhesive Allergy Unknown INLFAMED Verified 11/11/22 14:25 AND SWOLLEN dermabond Allergy Intermediate Rash Uncoded 11/10/22 04:45 Review of Systems Review of Systems: All systems reviewed & are unremarkable except as noted in HPI and below Constitutional: Constitutional: Denies chills, Denies fatigue and Denies fever(s) ENT: Denies nasal congestion and Denies sore throat Cardiovascular: Cardiovascular: Denies chest pain, Denies rapid heart rate and Denies radiating jaw, neck or arm pain Respiratory: Respiratory: Denies cough and Denies dyspnea Gastrointestinal: Gastrointestinal: Reports abdominal pain, Denies nausea and Denies vomiting Genitourinary: Genitourinary: Reports abnormal vaginal bleeding, Denies nocturia, Denies dysuria, Reports pelvic pain and Denies vaginal discharge [facility] Past Medical History Medical History Anemia affecting Asthma Bacterial vaginosis Body mass index [BMI] 28.0-28.9, adult (07/08/17) 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 Chronic cholecystitis Depression affecting Encounter for contraceptive surveillance Encounter for counseling regarding contraception Encounter for gynecological examination (general) (routine) without abnormal findings Encounter for other specified surgical aftercare Encounter for visit Encounter for test, result positive Encounter for supervision of normal first , first trimester Encounter for supervision of normal first , second trimester Encounter for supervision of normal in second trimester Encounter for supervision of normal in third trimester Encounter for surgical aftercare following surgery of digestive system Generalized anxiety disorder Group beta Strep positive Irregular menstruation anxiety Seizure Supervision of other high risk pregnancies, first trimester Supervision of other high risk pregnancies, second trimester Umbilical hernia with obstruction, without gangrene (05/07/18) Umbilical hernia without obstruction or gangrene Vaginal itching Yeast infection Family History Family History Mother Family history of diabetes mellitus in first degree relative Hypertension Asthma Family history of liver disease Diabetes mellitus Sibling Family history of diabetes mellitus in first degree relative Hypertension Diabetes mellitus Grandparent Family history of malignant neoplasm of male breast Diabetes mellitus Family history of malignant neoplasm Other Family history of allergic disorder Social History Social History Smoking status: Never smoker Second hand tobacco smoke
[2022-11-11] MEDS: METHOTREXATE SODIUM/PF 50 MG/2 ML VIAL 47 MG IM ×2 (18:31→18:42)
== END 2022-11-11 19:09 | disposition home or self-care (01) ==
PROVIDERS: Emergency Provider Emergency Medicine; PCP Family Medicine
DX: O00.90 Unspecified ectopic pregnancy without intrauterine pregnancy (principal)
CPT/HCPCS: 36415; 76801; 76817; 80053; 81025; 83690; 84702; 85025; 96374; 96375; 99284; J2270; J9260

== ENCOUNTER 2022-11-26 12:23 | Emergency (ER) | payer OTHER, SELFPAY ==
--- NOTE | ~2022-11-26 | CT_ITS ---
EXAMINATION:CT diagnostic chest wo con DATE: 11/26/2022 14:04 INDICATION: Posterior thoracic pain. TECHNIQUE: Computed tomography (CT) of the chest was performed without intravenous contrast. Automate d exposure control and iterative reconstruction technique were employed. The dose-length product (DLP ) was 247.83 mGy-cm. COMPARISON: Chest CT 11/16/14 FINDINGS: There is mild dependent atelectasis bilaterally. No pleural effusion. The heart size is nor mal. No pericardial effusion. There are changes of cholecystectomy. There is an old fracture of left 11th rib. There is mild thoracic spondylosis IMPRESSION: 1. No specific etiology for the patient's symptoms. Reviewed, dictated and finalized at location E.
[2022-11-26 12:25] VITALS: BP 118/70; PULSE 89; RESP 17; TEMP 36.6; O2SAT 98
--- NOTE | 2022-11-26 13:28 | ED.BACK ---
HPI - Back Pain/Injury General Chief Complaint: Back Pain/Injury Stated Complaint: thoracic back pain Time Seen by Provider: 11/26/22 13:09 Source: patient and EMS Mode of arrival: EMS Limitations: no limitations History of Present Illness HPI Narrative: 32 years old white female came by ambulance from home complaining of sudden severe pain across the mid thoracic back while trying to reach under the kitchen sink, heard a pop at that area. Pain is 10 out of 10. Denies other injuries. Related Data Allergies Allergy/AdvReac Type Severity Reaction Status Date / Time dextromethorphan Allergy Intermediate DISORIENTED, Verified 11/26/22 12:31 WEAK doxylamine Allergy Intermediate DISORIENTED, Verified 11/26/22 12:31 WEAK pseudoephedrine Allergy Intermediate DISORIENTED, Verified 11/26/22 12:31 WEAK tomato Allergy Mild TONGUE Verified 11/26/22 12:31 SWELLS adhesive Allergy Unknown INLFAMED Verified 11/26/22 12:31 AND SWOLLEN dermabond Allergy Intermediate Rash Uncoded 11/26/22 12:31 Review of Systems Review of Systems: All systems reviewed & are unremarkable except as noted in HPI and below 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 Chronic cholecystitis Depression affecting Encounter for contraceptive surveillance Encounter for counseling regarding contraception Encounter for gynecological examination (general) (routine) without abnormal findings Encounter for other specified surgical aftercare Encounter for visit Encounter for test, result positive Encounter for supervision of normal first , first trimester Encounter for supervision of normal first , second trimester Encounter for supervision of normal in second trimester Encounter for supervision of normal in third trimester Encounter for surgical aftercare following surgery of digestive system Generalized anxiety disorder Group beta Strep positive Irregular menstruation anxiety Seizure Supervision of other high risk pregnancies, first trimester Supervision of other high risk pregnancies, second trimester Umbilical hernia with obstruction, without gangrene (05/07/18) Umbilical hernia without obstruction or gangrene Vaginal itching Yeast infection Family History Family History Mother Family history of diabetes mellitus in first degree relative Hypertension Asthma Family history of liver disease Diabetes mellitus Sibling Family history of diabetes mellitus in first degree relative Hypertension Diabetes mellitus Grandparent Family history of malignant neoplasm of male breast Diabetes mellitus Family history of malignant neoplasm Other Family history of allergic disorder Social History Social History Smoking status: Never smoker Second hand tobacco smoke exposure: No Alcohol intake: never Exam Narrative: General appearance: Well-developed, well-nourished, severe pain with any movement. Skin: Normal color Head: Normocephalic, nontraumatic Eyes: Clear conjunctiva ENT: Oropharynx normal, ears normal, nose normal Neck: Supple, nontender Chest and respiratory: Airway patent, no respiratory distress, no accessory muscle use Heart: Regular rate/rhythm Abdomen: Soft, nontender, no organomegaly, quiet bowel sounds Vascular: Normal peripheral pulses, normal capillary refill. Musculoskeletal: Mild tenderness at the mid thoracic area across, and left lower ribs anteriorly. No bruises, no swelling Neurologic: Alert and oriented ?3, DRAPERY COUNSELOR is normal as tested, no gross motor deficit
[2022-11-26] MEDS: KETOROLAC 30 MG/ML VIAL (*BKC) IV PUSH (13:36)
[2022-11-26] MEDS: ONDANSETRON INJ 4 MG/2 ML VIAL IV PUSH (13:36)
[2022-11-26] MEDS: HYDROmorphone HCL INJ (*CRX) 1 MG/ML SYR 0.5 MG IV PUSH (13:36)
== END 2022-11-26 14:36 | disposition home or self-care (01) ==
PROVIDERS: Emergency Provider Emergency Medicine; PCP Family Medicine
DX: M54.6 Pain in thoracic spine (principal); T14.8XXA Other injury of unspecified body region, initial encounter; J45.909 Unspecified asthma, uncomplicated; F41.9 Anxiety disorder, unspecified; G40.909 Epilepsy, unspecified, not intractable, without status epilepticus; X50.0XXA Overexertion from strenuous movement or load, initial encounter
CPT/HCPCS: 71250; 96374; 96375; 99284; J1170; J1885; J2405

== ENCOUNTER 2023-09-10 12:12 | Outpatient (CLI) | payer OTHER, MEDICAID, SELFPAY ==
[2023-09-10 13:02] LABS: Beta HCG Quantitative < 2.39 mIU/ML
[2023-09-11 05:03] LABS: Progesterone <0.5 ng/mL
== END 2023-09-10 12:13 | disposition home or self-care (01) ==
LOC: ANHLAB 12:16
PROVIDERS: PCP Family Medicine; Visit Provider Obstetrics & Gynecology
DX: N92.6 Irregular menstruation, unspecified (principal)
CPT/HCPCS: 36415; 84144; 84702

== ENCOUNTER 2023-09-17 11:11 | Emergency (ER) | payer OTHER, MEDICAID, SELFPAY ==
--- NOTE | 2023-09-17 11:15 | ED.URI ---
HPI - URI/Sore Throat General Chief Complaint: Upper Respiratory Infection Stated Complaint: Cough/Sore Throat Time Seen by Provider: 09/17/23 11:15 Source: patient Mode of arrival: ambulatory Limitations: no limitations History of Present Illness HPI Narrative: Madisyn is a 33 year year old female patient presenting to the clinic today with complaints of cough, sore throat, voice hoarseness, and some body aches due to coughing. She denies any known fever but has had hot flashes and cold chills. Symptoms have been going on for approximately 3 days. Went to her primary care provider's office today and they swabbed her for strep but did not do a thorough exam on her so she came into the clinic to be evaluated today. Cough is nonproductive. States she is unable to sleep due to the constant cough. MD elicited complaint: sore throat and nasal congestion Related Data Home Medications Medication Instructions Recorded Confirmed labetalol 100 mg tablet 100 mg PO Q12H 09/10/23 09/17/23 ergocalciferol (vitamin D2) 1,250 1,250 mcg PO DIRECTED 09/17/23 09/17/23 mcg (50,000 unit) capsule mometasone-formoterol HFA 200 1 inh inhalation DIRECTED 09/17/23 mcg-5 mcg/actuation aerosol inhaler (Dulera) Allergies Allergy/AdvReac Type Severity Reaction Status Date / Time dextromethorphan Allergy Intermediate DISORIENTED, Verified 09/17/23 11:18 WEAK doxylamine Allergy Intermediate DISORIENTED, Verified 09/17/23 11:18 WEAK pseudoephedrine Allergy Intermediate DISORIENTED, Verified 09/17/23 11:18 WEAK tomato Allergy Mild TONGUE Verified 09/17/23 11:18 SWELLS adhesive Allergy Unknown INLFAMED Verified 09/17/23 11:18 AND SWOLLEN dermabond Allergy Intermediate Rash Uncoded 09/17/23 11:18 Review of Systems Review of Systems: Pertinent positives per HPI. Patient denies any fever, rash, headache, visual changes, dizziness, shortness of breath, chest pain, palpitations, nausea, vomiting, diarrhea, constipation, abdominal pain, or any urinary issues. 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 Chronic cholecystitis Depression affecting Encounter for contraceptive surveillance Encounter for counseling regarding contraception Encounter for gynecological examination (general) (routine) without abnormal findings Encounter for other specified surgical aftercare Encounter for visit Encounter for test, result positive Encounter for supervision of normal first , first trimester Encounter for supervision of normal first , second trimester Encounter for supervision of normal in second trimester Encounter for supervision of normal in third trimester Encounter for surgical aftercare following surgery of digestive system Generalized anxiety disorder Group beta Strep positive Irregular menstruation anxiety Seizure Supervision of other high risk pregnancies, first trimester Supervision of other high risk pregnancies, second trimester Umbilical hernia with obstruction, without gangrene (05/07/18) Umbilical hernia without obstruction or gangrene Vaginal itching Yeast infection Family History Family History Mother Family history of diabetes mellitus in first degree relative Hypertension Asthma Family history of liver disease Diabetes mellitus Sibling Family history of diabetes mellitus in first degree relative Hypertension Diabetes mellitus Grandparent Family history of malignant neoplasm of male breast Diabetes mellitus Family history of malignant neoplasm Other Family history of allergic disorder Social History Social History (Revie
[2023-09-17 11:22] VITALS: BP 131/88; PULSE 99; RESP 16; TEMP 36.4; O2SAT 100
== END 2023-09-17 12:15 | disposition home or self-care (01) ==
PROVIDERS: Emergency Provider Nurse Practitioner Family; PCP Family Medicine
DX: J06.9 Acute upper respiratory infection, unspecified (principal); J02.9 Acute pharyngitis, unspecified; Z20.822 Contact with and (suspected) exposure to COVID-19; J45.909 Unspecified asthma, uncomplicated
CPT/HCPCS: 87081; 87426; 87804; 87880; 99213; G0463

== ENCOUNTER 2023-10-04 13:41 | Outpatient (CLI) | payer OTHER, MEDICAID, SELFPAY ==
[2023-10-04 14:33] LABS: Beta HCG Quantitative < 2.39 mIU/ML
[2023-10-04 15:35] LABS: Trichomonas Vag PCR NOT DETECTED (NOT DETECTE)
[2023-10-04 15:58] LABS: Chlamydia trachomatis NOT DETECTED (NOT DETECTE); Neisseria gonorrhoeae PCR NOT DETECTED (NOT DETECTE)
== END 2023-10-04 13:42 | disposition home or self-care (01) ==
PROVIDERS: PCP Family Medicine; Visit Provider Obstetrics & Gynecology
DX: N97.9 Female infertility, unspecified (principal); N92.6 Irregular menstruation, unspecified
CPT/HCPCS: 36415; 84702; 87491; 87591; 87661

== ENCOUNTER 2023-10-06 12:00 | Outpatient (CLI) | payer OTHER, MEDICAID, SELFPAY ==
--- NOTE | ~2023-10-06 | XR_ITS ---
EXAMINATION: XR hysterosalpingogram DATE: 10/06/2023 12:32 INDICATION: Female infertility, unspecified. TECHNIQUE: Fluoroscopy was performed by the radiologist during contrast infusion into the endometrial cavity of the uterus by the primary physician. Fluoroscopy exposure time was 0.3 minutes. The total number of images was 4. FINDINGS: The intrauterine cavity is normal in morphology. There are changes of right salpingectomy. The left fallopian tube is normal. There is normal free intraperitoneal spillage of contrast on the l eft. IMPRESSION: 1. Normal intrauterine cavity and left fallopian tube. 2. Right salpingectomy. Reviewed, dictated and finalized at location A.
== END 2023-10-06 12:01 | disposition home or self-care (01) ==
LOC: ANHIMG 12:05
PROVIDERS: PCP Family Medicine; Visit Provider Obstetrics & Gynecology
DX: N97.9 Female infertility, unspecified (principal); Z90.721 Acquired absence of ovaries, unilateral
CPT/HCPCS: 58340; 74740; Q9966

== ENCOUNTER 2023-11-12 13:36 | Outpatient (CLI) | payer OTHER, MEDICAID, SELFPAY ==
[2023-11-13 12:02] LABS: Progesterone 11.4 ng/mL
== END 2023-11-12 13:37 | disposition home or self-care (01) ==
LOC: ANHLAB 13:37
PROVIDERS: PCP Family Medicine; Visit Provider Obstetrics & Gynecology
DX: N92.6 Irregular menstruation, unspecified (principal)
CPT/HCPCS: 36415; 84144

== ENCOUNTER 2024-07-25 13:21 | Emergency (ER) | payer OTHER, MEDICAID, SELFPAY ==
[2024-07-25 13:41] VITALS: BP 128/83; PULSE 101; RESP 16; TEMP 36.7; O2SAT 98
--- NOTE | 2024-07-25 13:49 | ED_ITS ---
HPI - URI/Sore Throat General Chief Complaint: Upper Respiratory Infection Stated Complaint: dry cough,stuffy nose,chest/back hurts on Predniso Time Seen by Provider: 07/25/24 13:51 Source: patient, RN notes reviewed and old records reviewed Mode of arrival: ambulatory Limitations: no limitations History of Present Illness HPI Narrative: 34-year-old female presents to the [facility] with complaints of a cough since . Reports it to be dry. Reports a stuffy nose. Had been seen by her primary care provider on Friday, started taking a prednisone that was prescribed to her by her primary on Friday. States that since she has had some increasing shortness of breath. Patient also reports that when she coughs a lot or moves around a lot as she sometimes gets really short of breath and occasionally dizzy. Related Data Home Medications ?Medication ?Instructions ?Recorded ?Confirmed ?Last Taken ?Type ergocalciferol (vitamin D2) 1,250 1,250 mcg PO DIRECTED 09/17/23 03/30/24 Unknown History mcg (50,000 unit) capsule mometasone-formoterol HFA 200 1 inh inhalation DIRECTED 09/17/23 03/30/24 Unknown History mcg-5 mcg/actuation aerosol inhaler (Dulera) metformin 500 mg tablet mg PO 03/30/24 03/30/24 Unknown History prednisone 20 mg tablet 20 mg PO .QD 07/25/24 07/25/24 Unknown History Allergies Allergy/AdvReac Type Severity Reaction Status Date / Time dextromethorphan Allergy Intermediate DISORIENTED, Verified 07/25/24 14:11 WEAK doxylamine Allergy Intermediate DISORIENTED, Verified 07/25/24 14:11 WEAK pseudoephedrine Allergy Intermediate DISORIENTED, Verified 07/25/24 14:11 WEAK tomato Allergy Mild TONGUE Verified 07/25/24 14:11 SWELLS adhesive Allergy Unknown INLFAMED Verified 07/25/24 14:11 AND SWOLLEN dermabond Allergy Intermediate Rash Uncoded 03/30/24 09:53 Review of Systems Review of Systems: All systems reviewed & are unremarkable except as noted in HPI and below Constitutional: Constitutional: Reports no additional constitutional complaints ENT: Reports system reviewed and no additional complaints, except as documented Cardiovascular: Cardiovascular: Reports no additional cardiovascular complaints, Denies chest pain and Denies dyspnea Respiratory: Respiratory: Reports as per HPI, Denies chest congestion, Reports cough and Reports dyspnea Musculoskeletal: Musculoskeletal: Reports no additional musculoskeletal complaints Integumentary/Breasts: Skin/Breast: Reports system reviewed and no additional complaints, except as docu [facility] Past Medical History Medical History Seizure Asthma Encounter for surgical aftercare following surgery of digestive system Encounter for supervision of normal in third trimester Encounter for supervision of normal in second trimester Encounter for supervision of normal first , second trimester Encounter for supervision of normal first , first trimester Encounter for gynecological examination (general) (routine) without abnormal findings 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 Body mass index [BMI] 28.0-28.9, adult (07/08/17) Yeast infection Vaginal itching Umbilical hernia without obstruction or gangrene Umbilical hernia with obstruction, without gangrene (05/07/18) Supervision of other high risk pregnancies, second trimester Supervision of other high risk pregnancies, first trimester anxiety Irregular menstruation Group beta Strep positive Generalized anxiety disorder Encounter for test, result positive Encounter for visit Encounter for other specified surgical aftercare Encounter for counseling regarding contraception Encounter for contraceptive surveillance Depression affecting Chronic cholecystitis Bacterial vaginosis Anemia affecting Surgical History Surgical History H/O gynecological procedure HSG 10/05/2021 Family History Family History Mother Family history of diabetes mellitus in first degree relative Hypertension Asthma Family history of liver disease Diabetes mellitus Sibling Family history of diabetes mellitus in first degree relative Hypertension Diabetes mellitus Grandparent Family history of malignant neoplasm of male breast Diabetes mellitus Family history of malignant neoplasm Other Family history of allergic disorder Social History Social History Smoking status: Never smoker Second hand tobacco smoke exposure: No Alcohol intake: never Substance use: current Substance use type: marijuana Do You Feel Safe in your Home?: Yes Lack of Transportation: No Lack of Food: Sometimes True Current Housing: I Have Housing Concerned About Future Housing: No Difficulty Paying Gas/Electric Bills: No Difficulty Paying for Meds: No Currently Unemployed: No Education: High School Diploma/GED Difficulty w/ Childcare or Family Care: No Living arrangements: with family Occupation/Education: occupation Gender identity (if verbalized by the patient): Female Sexual Orientation (if Verbalized by the Patient): Straight or Heterosexual Comments At the time of my signature, I reviewed and agree with the nursing past medical, surgical, social, and family history. There is no relevant family history pertinent to the patient complaint. Exam Const: General: cooperative, healthy appearing, comfortable, no acute distr ess, well developed, alert and well nourished Nutritional Appearance: well nourished and obese Orientation/consciousness: patient oriented x3 Limitations: no limitations HENMT: Head: normal to inspection Ears: hearing grossly normal bilaterally, external ears normal, TM's normal bilaterally, EAC's normal, mastoids normal and no periauricular adenopathy Mouth: Yes Normal oral and palatal mucosa present, Yes lip normal, Yes tongue normal and Yes moist mucous membranes Throat: posterior oropharynx normal, uvula midline and no uvular edema Eyes: General: appearance normal, both eyes and all related structures Alignment and Position: alignment normal Neck: Neck: normal visual inspection, full ROM, no lymphadenopathy and no meningeal signs Chest: Chest palpation & inspection: normal inspection of the chest Resp: Effort & Inspection: normal respiratory effort and able to speak in complete sentences Auscultation: no crackles, no rales, no rhonchi and wheezes expiratory wheezes and right upper Cardio: Rate: regular rate Skin: General skin exam: normal color and no rashes or lesions noted Neuro: General: patient oriented x3, gait normal, moves all extremities and no meningeal signs Cognition (Neuro): normal cognition Speech: normal speech Gait exam (Neuro): Normal gait present Extrem: General: normal to inspection, full ROM, capillary refill normal and normal gait Psych: Appearance: grossly normal and well kempt Mental Status: mental status grossly normal Speech and movement: Normal speech and movement present and Clear speech present Affect: normal affect Attitude: cooperative Course Course Level of Care: Express Care Visit Vital Signs Vital signs: Vital Signs Temperature 98.0 F 07/25/24 13:41 Pulse Rate 101 H 07/25/24 13:41 Respiratory Rate 16 07/25/24 13:41 Blood Pressure 128/83 07/25/24 13:41 Pulse Oximetry 98 07/25/24 13:41 Oxygen Delivery Room Air 03/09/25 13:41 Temperature 98.0 F 07/25/24 13:41 Pulse Rate 101 H 07/25/24 13:41 Respiratory Rate 16 07/25/24 13:41 Blood Pressure 128/83 07/25/24 13:41 Pulse Oximetry 98 07/25/24 13:41 Oxygen Delivery Room Air 07/25/24 13:41 Reviewed MDM - URI/Sore Throat MDM Narrative Medical decision making narrative: Patient sitting comfortably in exam room. Nontoxic, vitals stable patient in no acute distress. Patient presents with a cough since . Had been evaluated by primary care provider, given prednisone. Slight expiratory wheeze noted on exam to the right upper. Otherwise no acute findings noted. Patient states that she does have albuterol at home, enough. Encouraged her to finish taking the prednisone Discussed doing an x-ray but no acute findings for indication. Patient appropriate for outpatient treatment and follow-up Discharge instructions reviewed with patient, as well as provided in writing per nursing staff. The instructions also include specific and strict return/GO TO THE ER as well as f/u information. All questions have been answered, and the patient deny any further questions with discharge and discharge plan. Some parts of this dictation were generated by voice recognition software and may contain typographical and/or grammatical inaccuracies. Differential Diagnosis Differential diagnosis: Likely upper respiratory infection, otitis media, sinusitis, viral infection, bronchitis, influenza and pharyngitis Critical Care Time Critical Care Time Critical Care Time: No Discharge Plan Discharge Clinical Impression: Bronchitis Patient Disposition: Home, Self-Care Condition: Stable Instructions: Antibiotic Form, Acute Bronchitis (ED) Additional Instructions: Use your inhaler 2-3 times per day. It is very important to treat your symptoms. Drink plenty of water, Gatorade, Pedialyte, ice pops or Jell-O. -Alternate Tylenol and Motrin per package directions for fever or pain. You can alternate every 4 hours -Antihistamine medication such as Zyrtec/Claritin/Meera during the day can help improve symptoms. -doing daily nasal irrigations can help relieve pressure your sinuses. Things like a Neti pot -Use Flonase twice a day for 5 days then daily to help reduce the inflammation and dry up your sinuses. -You can also use Mucinex. Be sure to drink plenty of water with this medication at least 8 ounces with every dose and it is important to drink 8 to 10 glasses of water per day. Water is a natural decongestant -Eat and drink things that are easy to swallow, like tea or soup, or popsicles. -Oral rinses such as: Salt water gargles and/or may use topical anesthetic (eg. Chloraseptic spray) or lozenges to relieve dryness or throat pain). -Frequent hand washing or hand leather case finisher is one of the best ways to prevent spread of infection. -Using a vaporizer or humidifier at night will also help thin secretions and help with coughing up phlegm. -Follow up with primary care provider in 7-10 days if condition is not improving - For new or worsening symptoms go directly to the nearest ER Patient Language: Persian Prescriptions: No Action ergocalciferol (vitamin D2) 1,250 mcg (50,000 unit) capsule 1,250 mcg PO DIRECTED Dulera 200-5 mcg/actuation HFA aerosol inhaler 1 inh INHALATION DIRECTED prednisone 20 mg tablet 20 mg PO .QD metformin 500 mg tablet PO letrozole 2.5 mg tablet 5 mg PO DAILY 5 Days Qty: 10 5RF Rx Instructions: take on days 3 through 7 of your menstrual cycle labetalol 100 mg tablet 100 mg PO Q12H Qty: 180 2RF Follow-up/Referrals: PHYSICIAN NOT ON STAFF,NONSTAFF [Primary Care Provider] - Stand Alone Forms: Work/School Release IP Time of Disposition: 14:15
== END 2024-07-25 14:20 | disposition home or self-care (01) ==
PROVIDERS: Emergency Provider Nurse Practitioner
DX: J40 Bronchitis, not specified as acute or chronic (principal); F12.90 Cannabis use, unspecified, uncomplicated; J45.909 Unspecified asthma, uncomplicated
CPT/HCPCS: 99211; G0463

== ENCOUNTER 2025-01-20 13:24 | Outpatient (CLI) | payer OTHER, SELFPAY ==
--- OUTSIDE RECORDS SUMMARY | 2000-09-17 08:15 | XMS_ITS | Continuity of Care Document ---
Author Organization [facility] Address [address] [place] [address] [address] [place] [address] Phone Care Team Providers Care Crop Specialist Name Role Phone Yu OD, Jules Unavailable Unavailable Advance Directives Directive Yes / No Effective Date File Name No Information Encounters Encounter Description Practice Location Reason(s) For Visit Diagnoses Date Provider Providers Copied on Encounter [facility], [address], [place], [place], [address], [place] tel:[phone] [facility] [place] No Information May-0 2-200 1 Yu OD Jules. [address] [facility] [place] , [address], [place], [address], [place]. tel:[phone] Family History Family Member Type Diagnosis Age [...]
--- OUTSIDE RECORDS SUMMARY | 2025-01-20 13:33 | XMS_ITS | Encounter Summary ---
Author Organization [facility] Address [address] [place] [id number] Care Team Providers Care Tax Record Clerk Name Role Phone Corinne Thayer MD Primary Care Provider [phone] Reason for Visit * Reason Onset Date Comments Lab Results 02/18/2024 Encounter Details Date Type Department Care Team (Late st Contact Info) Description 02/18/2024 Bugsnag Message Enc [facility] Family Medicine - [address], [address] [place] [phone] Corinne Thayer MD [address] [facility] [address] [place] [id number] Lab results Social History Tobacco Use Types Packs/Day Years Used Date Smoking Tobacco: Never Passive Smoke Exposure: Past Smokeless Tobacco: Never Alcohol Use Standard Drinks/Week Comments Yes 0 (1 standard drink = 0.6 oz pur e alcohol) social PHQ-2 Answer Date Recorded Patient Health Questionnaire-2 Score 5 02/17/2024 Comments No Sex and Gender Information Value Date Recorded Sex Assigned at Not on file Legal Sex Female 11:08 AM CDT Gender Identity Not on file Sexual Orientation Not on file documented as of this encounter Progress Notes * Crystal Regalado MA - 02/19/2024 9:06 AM CDTFrom: Madisyn Mak To: Dr. Corinne Thayer Sent: 02/18/2024 7:44 PM CDT Subject: Lab results What about the platelets being high? documented in this encounter Plan of Treatment Not on file documented as of this encounter Visit Diagnoses Not on filedocumented in this encounter Additional Health Concerns Assessment Noted Time PHQ-9 Depression Total Score: 18 024 3:35 PM CDT documented as of this encounter Care Teams Tax Record Clerk Relationship Specialty Start Date End Date Corinne Thayer MD [address] [id number] PCP - General FAMILY PRACTICE 02/17/24 documented as of this encounter
--- OUTSIDE RECORDS SUMMARY | 2025-01-20 13:33 | XMS_ITS | Encounter Summary ---
Author Organization [facility] Address [address] [place] [id number] Care Team Providers Care Phlebotomist Associate Name Role Phone Corinne Thayer MD Primary Care Provider [phone] Encounter Details Date Type Department Care Team (Late st Contact Info) Description 05/27/2024 IQcardt Message Enc [facility] Family Medicine - [address], [address] [place] [phone] Corinne Thayer MD [facility] [address] [place] [id number] Anxiety issues Social History Tobacco Use Types Packs/Day Years [...] on file documented as of this encounter Plan of Treatment Not on file documented as of this encounter Visit Diagnoses Not on filedocumented in this encounter Additional Health Concerns Assessment Noted Time PHQ-9 Depression Total Score: 18 024 3:35 PM CDT documented as of this encounter Care Teams Phlebotomist Associate Relationship Specialty Start Date End Date Corinne Thayer MD [facility] [address] [place] [id number] PCP - General FAMILY PRACTICE 02/17/24 documented as of this encounter
--- OUTSIDE RECORDS SUMMARY | 2025-01-20 13:33 | XMS_ITS | Encounter Summary ---
Author Organization [facility] Address [address] [place] [address] Care Team Providers Care Computer Analyst Supervisor Name Role Phone Corinne Thayer MD Primary Care Provider [phone] Encounter Details Date Type Department Care Team (Late st Contact Info) Description 10/19/2024 SwingPal Message Enc [facility] Family Medicine - [address], [address] [place] [phone] Corinne Thayer MD [address] [place] [address] [place] [id number] Shingles Social History Tobacco Use Types Packs/Day Years [...] documented as of this encounter Care Teams Computer Analyst Supervisor Relationship Specialty Start Date End Date Corinne Thayer MD [address] [place] [address] [place] [id number] PCP - General FAMILY PRACTICE 02/17/24 documented as of this encounter
--- OUTSIDE RECORDS SUMMARY | 2025-01-20 13:33 | XMS_ITS | Clinical Summary ---
Author Organization [facility] Address Formerly [facility] [place] [address] Care Team Providers Care Area Plant Manager Name Role Phone Corinne Thayer MD Primary Care Provider [phone] Allergies Active Allergy Reactions Criticality Noted Date Comments Fzjjymynf-Mdbkwjzdxc-Vz-Apap Other (see comment) Medium 02/17/2024 Medications letrozole (FEMARA) 2.5 MG tablet Take 1 tablet by mouth daily. Active mometasone-formoter ol (DULERA) 200-5 MCG/ACT Aerosol Inhale 2 puffs into the lungs. Active ZYRTEC ALLERGY 10 MG tablet Take 1 tablet (10 mg total) by mouth daily. 4 Active vitamin D2, ergocalciferol, (DRISDOL) 1.25 mg capsule Take 1 capsule (1.25 mg total) by mouth once a week. 5 Active fluticasone propionate (FLONASE) 50 MCG/ACT nasal spray 2 sprays by Each Nostril route as needed. 4 Active hydrOXYzine (ATARAX) 25 MG tablet Take 1 tablet (25 mg total) by mouth 2 (two) times daily as needed. Active ondansetron (ZOFRAN-ODT) 4 MG disintegrating tabletIndications:N ausea and vomiting in adult Take 1 tablet (4 mg total) by mouth every 8 (eight) hours as needed. 20 tablet 2 5 Active labetalol (NORMODYNE) 100 MG tabletIndications:E ssential hypertension Take 1 tablet (100 mg total) by mouth 2 (two) times daily. 60 tablet 2 5 Active metFORMIN (GLUCOPHAGE) 500 MG tabletIndications:C lass 2 severe obesity due to excess calories with serious comorbidity and body mass index (BMI) of 36.0 to 36.9 in adult ([facility]) Take 1 tablet (500 mg total) by mouth 2 (two) times daily with meals. 180 tablet 1 5 Active Active Problems Problem Noted Date Diagnosed Date Asthma ([facility]) 02/17/2024 Assessment & Plan (02/17/2024 5:29 PM CDT): Lungs clear on exam today, patient doing well on Dulera and as needed albuterol. Class 2 severe obesity due t o excess calories with serious comorbidity and body mass index (BMI) of 36.0 to 36.9 in adult 02/17/2024 Assessment & Plan (02/17/2024 5:28 PM CDT): Endorses significant weight gain over the last 2 years, likely impairing fertility. Patient has comorbid hypertension. Will check screening lab work today. Encounter for preconception consultation 024 Assessment & Plan (02/17/2024 5:27 PM CDT): Patient is currently trying to conceive, under direction of LEAD GENERATION REPRESENTATIVE. Will avoid any teratogenic medications and minimize medication use overall. 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 Proper prescription sent. Anxiety 10/28/2018 Assessment & Plan (02/17/2024 5:28 PM CDT): Previously had benefit from hydroxyzine though wishes to avoid currently as she is trying to get . Will further discuss mental health medication going forward. Resolved Problems Problem Noted Date Diagnosed Date Resolved Date Obesity (BMI 35.0-39.9 without comorbidity) 02/17/2024 02/17/2024 Encounters Date Type Department Care Team Description 11/24/2024 Telephone [facility] Medical [facility] Family Medicine [facility] [address] , [address] [place] [address] Corinne Thayer MD Prior Authorization from Last 3 Months Immunizations Immunization Administration Dates Next Due Influenza Adult (Generic) 03/23/2018 Tdap (Generic) 11/22/2015 Family History Medical History Relation Comments COPD Father Diabetic kidney disease Mother Fatty liver Mother Relation Status Comments Father Alive Mother Social History Tobacco Use Types Packs/Day Years Used Date Smoking Tobacco: Never Passive Smoke Exposure: Past Smokeless Tobacco: Never Tobacco Cessation:Counseling Given: No Alcohol Use Standard Drinks/Week Comments Yes 0 (1 standard drink = 0.6 oz pur e alcohol) social PHQ-2 Answer Date Recorded Patient Health Questionnaire-2 Score 5 02/17/2024 Comments No Sex and Gender Information Value Date Recorded Sex Assigned at Not on file Legal Sex Female 11:08 AM CDT Gender Identity Not on file Sexual Orientation Not on file Last Filed Vital Signs Vital Sign Reading Time Taken Comments Blood Pressure 116/84 07/23/2024 3:11 PM DIRECTOR OF PLANNING Pulse 95 07/23/2024 3:11 PM DIRECTOR OF PLANNING Temperature 36.2 C (97.1 F) 07/23/2024 3:11 PM DIRECTOR OF PLANNING Respiratory Rate 16 07/23/2024 3:11 PM DIRECTOR OF PLANNING Oxygen Saturation 98% 07/23/2024 3:11 PM DIRECTOR OF PLANNING Inhaled Oxygen Concentration - - Weight 89.8 kg (198 lb) 07/23/2024 3:11 PM DIRECTOR OF PLANNING Height 160 cm (5' 3) 07/23/2024 3:11 PM DIRECTOR OF PLANNING Body Mass Index 35.07 07/23/2024 3:11 PM DIRECTOR OF PLANNING Plan of Treatment Health Maintenance Due Date Last Done Comments Cervical Cancer Screening Pa p Smear (Age 30 to 64) Every 3 Years 1988 Annual Physical 1991 Hepatitis C 2006 Hepatitis B Vaccines (1 of 3 - 19+ 3-dose series) 2007 Pneumococcal Vaccine: Pediat rics (0 to 5 Years) and At-Risk Patients (6 to 49 Years) (1 of 2 - PCV) 2007 HPV Vaccines (1 - 3-dose SCD M series) 2015 Cervical Cancer Screening Pa p with HPV Testing (Age 30 to 64) Every 5 Years 2018 Cervical Cancer Screening with HPV 2018 COVID-19 Vaccine (2023- 5 season) 2024 PHQ-2 (Physician [place]) 05/19/2024 02/17/2024 DTaP, Tdap and Td Vaccines ( 2 - Td or Tdap) 11/21/2025 11/22/2015 Meningococcal B Vaccine Aged Out No l onger eligible based on patient's age to complete this topic Meningococcal Vaccine Aged Out No vivian camelia eligible based on patient's age to complete this topic RSV Immunizations Under 20 Months Aged Out No longer eligible based on patient's age to complete this topic Insurance [facility] MEDICAID Care Teams Area Plant Manager Relationship Specialty Start Date End Date Corinne Thayer MD [address] [place] [id number] PCP - General FAMILY PRACTICE 02/17/24
[2025-01-20 14:31] LABS: Beta HCG Quantitative 23.33 mIU/ML
== END 2025-01-20 13:25 | disposition home or self-care (01) ==
PROVIDERS: Visit Provider Obstetrics & Gynecology
DX: N92.6 Irregular menstruation, unspecified (principal)
CPT/HCPCS: 36415; 84702

== ENCOUNTER 2025-01-22 11:38 | Outpatient (CLI) | payer OTHER, SELFPAY ==
--- OUTSIDE RECORDS SUMMARY | 2000-09-17 08:15 | XMS_ITS | Continuity of Care Document ---
Author Organization [facility] Address [address] [place] [address] [address] [place] [address] Phone Care Team Providers Care Maintainability Engineer Name Role Phone Yu OD, Jules Unavailable Unavailable Advance Directives Directive Yes / No Effective Date File Name No Information Encounters Encounter Description Practice Location Reason(s) For Visit Diagnoses Date Provider Providers Copied on Encounter [facility], [address], [place], [place], [address], [place] tel:[phone] [facility] [place] No Information May-0 2-200 1 Yu OD Jules. [address] [facility] [place] , [address], [place], [address], [place]. tel:[phone] Family History Family Member Type Diagnosis Age [...]
--- OUTSIDE RECORDS SUMMARY | 2025-01-22 11:42 | XMS_ITS | Clinical Summary ---
Author Organization [facility] Address [facility] [place] [address] Care Team Providers Care Print Traffic Manager Name Role Phone Corinne Thayer MD Primary Care Provider Allergies Active Allergy Reactions Criticality Noted Date Comments Ysxkuxcdb-Zjxymuwlig-Rb-Apap Other (see comment) Medium 02/17/2024 Medications letrozole [...] (BMI) of 36.0 to 36.9 in adult ([facility]) Take 1 tablet (500 mg total) by mouth 2 (two) times daily with meals. 180 tablet 1 5 Active Active Problems Problem Noted Date Diagnosed Date Asthma ([facility]) 02/17/2024 Assessment & Plan (02/17/2024 5:29 PM [...] currently trying to conceive, under direction of SENIOR COURTROOM CLERK. Will avoid any teratogenic medications and minimize [...] Type Department Care Team Description 11/24/2024 Telephone [facility] Medical Group Family Medicine [facility] [address] , [address] [place] [address] Corinne Thayer MD Prior Authorization [...] Comments Blood Pressure 116/84 07/23/2024 3:11 PM 911 DISPATCHER Pulse 95 07/23/2024 3:11 PM 911 DISPATCHER Temperature 36.2 C (97.1 F) 07/23/2024 3:11 PM 911 DISPATCHER Respiratory Rate 16 07/23/2024 3:11 PM 911 DISPATCHER Oxygen Saturation 98% 07/23/2024 3:11 PM 911 DISPATCHER Inhaled Oxygen Concentration - - Weight 89.8 kg (198 lb) 07/23/2024 3:11 PM 911 DISPATCHER Height 160 cm (5' 3) 07/23/2024 3:11 PM 911 DISPATCHER Body Mass Index 35.07 07/23/2024 3:11 PM 911 DISPATCHER Plan of Treatment Health Maintenance Due Date [...] Vaccine (2023- 5 season) 2024 PHQ-2 (Physician [place]) 05/19/2024 02/17/2024 DTaP, Tdap and Td Vaccines [...] patient's age to complete this topic Insurance [facility] MEDICAID Care Teams Print Traffic Manager Relationship Specialty Start Date End Date Corinne Thayer MD [address] [place] [phone] PCP - General FAMILY PRACTICE 02/17/24
--- OUTSIDE RECORDS SUMMARY | 2025-01-22 11:43 | XMS_ITS | Encounter Summary ---
Author Organization [facility] Address [address] [place] [address] Care Team Providers Care Vehicle Check In Clerk Name Role Phone Corinne Thayer MD Primary Care Provider [phone] Encounter Details Date Type Department Care Team (Late st Contact Info) Description 05/27/2024 [employer] Message Enc [facility] Medical Group Family Medicine - [address], [address] [place] [phone] Corinne Thayer MD [facility] [address] [place] [address] Anxiety issues Social History Tobacco Use [...] documented as of this encounter Care Teams Vehicle Check In Clerk Relationship Specialty Start Date End Date Corinne Thayer MD [facility] [address] [place] [address] PCP - General FAMILY PRACTICE 02/17/24 documented as of this encounter
--- OUTSIDE RECORDS SUMMARY | 2025-01-22 11:43 | XMS_ITS | Encounter Summary ---
Author Organization [facility] Address [address] [place] [address] Care Team Providers Care Embedded Systems Developer Name Role Phone Corinne Thayer MD Primary Care Provider [phone] Reason for Visit * Reason Onset Date Comments Lab Results 02/18/2024 Encounter Details Date Type Department Care Team (Late st Contact Info) Description 02/18/2024 [employer] Message Enc [facility] Medical Group Family Medicine - [address], [address] [place] [phone] Corinne Thayer MD [address] [facility] [address] [place] [address] Lab results Social History Tobacco Use [...] documented as of this encounter Care Teams Embedded Systems Developer Relationship Specialty Start Date End Date Corinne Thayer MD [address] [address] PCP - General FAMILY PRACTICE 02/17/24 documented as of this encounter
--- OUTSIDE RECORDS SUMMARY | 2025-01-22 11:43 | XMS_ITS | Encounter Summary ---
Author Organization [facility] Address [address] [place] [address] Care Team Providers Care Pump Erector Helper Name Role Phone Corinne Thayer MD Primary Care Provider [phone] Encounter Details Date Type Department Care Team (Late st Contact Info) Description 10/19/2024 [employer] Message Enc [facility] Medical Group Family Medicine - [address], [address] [place] [address] Corinne Thayer MD [address] [place] [address] [place] [address] Shingles Social History Tobacco Use Types [...] documented as of this encounter Care Teams Pump Erector Helper Relationship Specialty Start Date End Date Corinne Thayer MD [address] [place] [address] [place] [address] PCP - General FAMILY PRACTICE 02/17/24 documented as of this encounter
[2025-01-22 12:31] LABS: Beta HCG Quantitative 44.27 mIU/ML
== END 2025-01-22 11:39 | disposition home or self-care (01) ==
PROVIDERS: Visit Provider Obstetrics & Gynecology
DX: N92.6 Irregular menstruation, unspecified (principal)
CPT/HCPCS: 36415; 84702

== ENCOUNTER 2025-01-22 14:40 | Emergency (ER) | payer OTHER, SELFPAY ==
--- OUTSIDE RECORDS SUMMARY | 2000-09-17 08:15 | XMS_ITS | Continuity of Care Document ---
Author Organization [facility] Address [address] [place] [address] [address] [place] [address] Phone Care Team Providers Care Client Experience Manager Name Role Phone Yu OD, Jules Unavailable Unavailable Advance Directives Directive Yes / No Effective Date File Name No Information Encounters Encounter Description Practice Location Reason(s) For Visit Diagnoses Date Provider Providers Copied on Encounter [facility], [address], [place], [place], [address], [place] tel:[phone] [facility] [place] No Information May-0 2-200 1 Yu OD Jules. [address] [facility] [place] , [address], [place], [address], [place]. tel:[phone] Family History Family Member Type Diagnosis Age At Onset No Information Payers Payer name Insurance type Covered republican ID Authoriza tion(s) No Information Social History [...]
--- OUTSIDE RECORDS SUMMARY | 2025-01-22 14:42 | XMS_ITS | Encounter Summary ---
Author Organization [facility] Address [address] [place] [address] Care Team Providers Care Burlapper Name Role Phone Corinne Thayer MD Primary Care Provider [phone] Encounter Details Date Type Department Care Team (Late st Contact Info) Description 05/27/2024 [employer] Message Enc [facility] Medical Group Family Medicine - [address], [address] [place] [phone] Corinne Thayer MD [facility] [address] [place] [address] Anxiety issues Social History Tobacco Use [...] documented as of this encounter Care Teams Burlapper Relationship Specialty Start Date End Date Corinne Thayer MD [facility] [address] [place] [address] PCP - General FAMILY PRACTICE 02/17/24 documented as of this encounter
--- OUTSIDE RECORDS SUMMARY | 2025-01-22 14:42 | XMS_ITS | Encounter Summary ---
Author Organization [facility] Address [address] [place] [address] Care Team Providers Care Feather Baler Name Role Phone Corinne Thayer MD Primary Care Provider [phone] Reason for Visit * Reason Onset Date Comments Lab Results 02/18/2024 Encounter Details Date Type Department Care Team (Late st Contact Info) Description 02/18/2024 [place] Message Enc [facility] Medical Group Family Medicine - [address], [address] [place] [phone] Corinne Thayer MD 1512 [facility] [address] [place] [address] Lab results Social History Tobacco Use [...] documented as of this encounter Care Teams Feather Baler Relationship Specialty Start Date End Date Corinne Thayer MD [address] [address] PCP - General FAMILY PRACTICE 02/17/24 documented as of this encounter
--- OUTSIDE RECORDS SUMMARY | 2025-01-22 14:42 | XMS_ITS | Encounter Summary ---
Author Organization [facility] Address [address] [place] [address] Care Team Providers Care Specialties Operator Name Role Phone Corinne Thayer MD Primary Care Provider [phone] Encounter Details Date Type Department Care Team (Late st Contact Info) Description 10/19/2024 [place] Message Enc [facility] Medical Group Family Medicine - [address], [address] [place] [address] Corinne Thayer MD [address] [place] [address] [place] [address] Shingles Social History Tobacco Use Types [...] documented as of this encounter Care Teams Specialties Operator Relationship Specialty Start Date End Date Corinne Thayer MD [address] [place] [address] [place] [address] PCP - General FAMILY PRACTICE 02/17/24 documented as of this encounter
[2025-01-22 14:45] VITALS: BP 133/80; PULSE 107; RESP 20; TEMP 36.5; O2SAT 99
[2025-01-22 17:25] LABS: Hematocrit 40.5 % (37.0-47.0); Hemoglobin 13.5 g/dL (12.0-15.0); Immature Granulocyte Percent A 0.5 % (0-0.5); Lymphocytes Absolute Auto 2.72 K/mm3 (0.9-3.2); Mean Corpuscular HGB Conc 33.3 g/dl (32-36); Mean Corpuscular Hemoglobin 29.3 pg (26-34); Mean Corpuscular Volume 88.0 fl (80-100); Nucleated Red Blood Cells Absolute Auto 0.000 K/mm3 (0.0-0.012); Nucleated Red Blood Cells Perc 0.0 % (0.0-0.2); Platelet Count Result 420 k/mm3 (150-375); Red Blood Count 4.60 M/mm3 (4.2-5.4); White Blood Count 12.9 K/mm3 (4.5-10.0)
[2025-01-22 17:36] LABS: Alanine Aminotransferase 18 U/L (6-35); Albumin Level 4.4 g/dL (3.5-5.1); Alkaline Phosphatase 78 U/L (38-126); Anion Gap 10 mmol/L (4-12); Aspartate Amino Transferase 21 U/L (14-36); Bilirubin,Total 0.3 mg/dL (0.2-1.3); Blood Urea Nitrogen 12 mg/dL (7-17); Calcium 9.5 mg/dL (8.4-10.2); Carbon Dioxide 24 mmol/L (22-30); Chloride 105 mmol/L (98-107); Estimated CRCL calculation 95 ml/min; Estimated Glomerular Filt Rate > 60; Glucose 114 mg/dL (65-110); Potassium 3.9 mmol/L (3.4-5.0); Sodium 139 mmol/L (137-145); Total Protein 7.5 g/dL (6.3-8.2)
[2025-01-22 17:37] LABS: INR 1.0; Partial Thromboplastin Time 28.5 Seconds (22.3-36.8); Prothrombin Time 12.7 Seconds (11.1-14.7)
[2025-01-22 17:53] LABS: Beta HCG Quantitative 50.79 mIU/ML
--- NOTE | 2025-01-22 18:19 | ED_ITS ---
HPI - General Chief complaint: Vaginal Bleeding Stated complaint: vaginal bleeding Time Seen by Provider: 01/22/25 17:45 Source: patient Mode of arrival: ambulatory Limitations: no limitations History of Present Illness HPI Narrative: This is a 34-year-old female that presents to the emergency department for vaginal bleeding in early . Reports she is about 5 weeks . She started to have light bleeding this afternoon. This has continued which prompted her to be seen. Reports mild pelvic cramping. Related Data Home Medications ?Medication ?Instructions ?Recorded ?Confirmed ?Last Taken ?Type ergocalciferol (vitamin D2) 1,250 1,250 mcg PO DIRE CTED 09/17/23 07/29/24 Unknown History mcg (50,000 unit) capsule mometasone-formoterol HFA 200 1 inh inhalation DIRE CTED 09/17/23 07/29/24 Unknown History mcg-5 mcg/actuation aerosol inhaler (Dulera) metformin 500 mg tablet mg PO 03/30/24 07/29/24 Unkn own History Allergies Allergy/AdvReac Type Severity Reaction Status Date / Time dextromethorphan Allergy Intermediate DISORIENTED, Verified 01/22/25 17:47 WEAK doxylamine Allergy Intermediate DISORIENTED, Verified 01/22/25 17:47 WEAK pseudoephedrine Allergy Intermediate DISORIENTED, Verified 01/22/25 17:47 WEAK tomato Allergy Mild TONGUE Verified 01/22/25 17:47 SWELLS adhesive Allergy Unknown INLFAMED Verified 01/22/25 17:47 AND SWOLLEN dermabond Allergy Intermediate Rash Uncoded 01/22/25 17:47 Review of Systems 2 Review of Systems: All systems reviewed & are unremarkable except as noted in HPI and below PMFSH Past Medical History Medical History Seizure Asthma Encounter for surgical aftercare following surgery of digestive system Encounter for supervision of normal in third trimester Encounter for supervision of normal in second trimester Encounter for supervision of normal first , second trimester Encounter for supervision of normal first , first trimester Encounter for gynecological examination (general) (routine) without abnormal findings 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 Body mass index [BMI] 28.0-28.9, adult (07/08/17) Yeast infection Vaginal itching Umbilical hernia without obstruction or gangrene Umbilical hernia with obstruction, without gangrene (05/07/18) Supervision of other high risk pregnancies, second trimester Supervision of other high risk pregnancies, first trimester anxiety Irregular menstruation Group beta Strep positive Generalized anxiety disorder Encounter for test, result positive Encounter for visit Encounter for other specified surgical aftercare Encounter for counseling regarding contraception Encounter for contraceptive surveillance Depression affecting Chronic cholecystitis Bacterial vaginosis Anemia affecting Surgical History Surgical History H/O gynecological procedure HSG 10/05/2021 Family History Family History Mother Family history of diabetes mellitus in first degree relative Hypertension Asthma Family history of liver disease Diabetes mellitus Sibling Family history of diabetes mellitus in first degree relative Hypertension Diabetes mellitus Grandparent Family history of malignant neoplasm of male breast Diabetes mellitus Family history of malignant neoplasm Other Family history of allergic disorder Social History Social History Smoking status: Never smoker Second hand tobacco smoke exposure: No Alcohol intake: never Substance use: current Substance use type: marijuana Do You Feel Safe in your Home?: Yes Lack of Transportation: No Lack of Food: Sometimes True Current Housing: I Have Housing Concerned About Future Housing: No Difficulty Paying Gas/Electric Bills: No Difficulty Paying for Meds: No Currently Unemployed: No Education: High School Diploma/GED Difficulty w/ Childcare or Family Care: No Living arrangements: with family Occupation/Education: occupation Gender identity (if verbalized by the patient): Female Sexual Orientation (if Verbalized by the Patient): Straight or Heterosexual Exam 2 Narrative: GENERAL: Well-appearing, well-nourished, and in no acute distress. HEAD: Normocephalic, atraumatic. EYES: EOMI. CHEST: Clear to auscultation. No respiratory distress. No wheezes rales or rhonchi HEART: Regular rate and rhythm. No murmur heard. Normal peripheral pulses. ABDOMEN: Soft, nontender, nondistended, normal active bowel sounds. EXTREMITIES: Normal range of motion. No edema. SKIN: Warm, dry, no rash. NEURO: No focal deficits. Alert and oriented x3. PSYCH: Normal mood and affect Course Course Emergency Course: Patient updated on her workup and agrees with plan of care Vital Signs Vital signs: Vital Signs Temperature 97.7 F 01/22/25 14:45 Pulse Rate 107 H 01/22/25 14:45 Respiratory Rate 20 01/22/25 14:45 Blood Pressure 133/80 01/22/25 14:45 Pulse Oximetry 99 01/22/25 14:45 Oxygen Delivery Room Air 01/22/25 14:45 Temperature 97.7 F 01/22/25 14:45 Pulse Rate 107 H 01/22/25 14:45 Respiratory Rate 20 01/22/25 14:45 Blood Pressure 133/80 01/22/25 14:45 Pulse Oximetry 99 01/22/25 14:45 Oxygen Delivery Room Air 01/22/25 14:45 MDM - OB/Uterine Contractions MDM Narrative Medical decision making narrative: Patient presents the emergency department for bleeding in early . She describes the bleeding as light. Her blood pressure is stable. Hemoglobin is normal. She is O positive. Quantitative beta-hCG is 50. Patient was updated on her workup and agrees with plan of care. Will be given order for repeat quantitative beta HCG, instructed on close follow-up with her OB. She was given warnings to return to the ER Differential Diagnosis Differential diagnosis: Likely other (Miscarriage, threatened miscarriage) Lab Data Attestation: I reviewed the patient's lab results. 01/22/25 17:19 01/22/25 17:19 Labs: Lab Results 01/22/25 Range/Units 17:19 WBC 12.9 H (4.5-10.0) K/mm3 RBC 4.60 (4.2-5.4) M/mm3 Hgb 13.5 (12.0-15.0) g/dL Hct 40.5 (37.0-47.0) % MCV 88.0 (80-100) fl MCH 29.3 (26-34) pg MCHC 33.3 (32-36) g/dl RDW 13.6 (11.5-14.5) % Plt Count 420 H (150-375) k/mm3 MPV 9.4 (7.4-10.4) fl Immature Gran % (Auto) 0.5 (0-0.5) % Neut % (Auto) 70.2 (45.5-73.1) % Lymph % (Auto) 21.1 (18.3-44.2) % [place] % (Auto) 5.8 (2.6-8.5) % Eos % (Auto) 1.9 (0-4.4) % Baso % (Auto) 0.5 (0.2-1.2) % Lymph # (Auto) 2.72 (0.9-3.2) K/mm3 [place] # (Auto) 0.8 H (0.1-0.6) K/mm3 Eos # (Auto) 0.3 (0-0.3) K/mm3 Baso # (Auto) 0.1 (0.0-0.1) K/mm3 Abs Immat Gran (auto) 0.06 H (0.00-0.031) K/mm3 Absolute Neuts (auto) 9.1 H (1.3-6.7) K/mm3 Absolute Nucleated RBC 0.000 (0.0-0.012) K/mm3 Nucleated RBC % 0.0 (0.0-0.2) % PT 12.7 (11.1-14.7) Seconds INR 1.0 APTT 28.5 (22.3-36.8) Seconds Sodium 139 (137-145) mmol/L Potassium 3.9 (3.4-5.0) mmol/L Chloride 105 (98-107) mmol/L Carbon Dioxide 24 (22-30) mmol/L Anion Gap 10 (4-12) mmol/L BUN 12 D (7-17) mg/dL Creatinine 0.76 (0.7-1.0) mg/dL Estim Creat Clear Calc 95 ml/min Estimated GFR > 60 (59 - ) Glucose 114 H (65-110) mg/dL Calcium 9.5 (8.4-10.2) mg/dL Total Bilirubin 0.3 (0.2-1.3) mg/dL AST 21 (14-36) U/L ALT 18 (6-35) U/L Alkaline Phosphatase 78 (38-126) U/L Total Protein 7.5 (6.3-8.2) g/dL Albumin 4.4 (3.5-5.1) g/dL Beta HCG, Quant 50.79 mIU/ML Blood Type O Positive Antibody Screen Negative Screen Pending Baby's Blood Type Pending Baby's VICENTA Pending Doses of RhIg Required Pending Critical Care Time Critical Care Time Critical Care Time: No Discharge Plan Discharge Clinical Impression: Threatened miscarriage Patient Disposition: Home Condition: Stable Instructions: Threatened Miscarriage (ED) Additional Instructions: Return to the ER if you experience fever, chest pain, shortness of breath, abdominal pain with nausea and vomiting, you are unable to keep down liquids or solids, you are soaking through a pad/hour, you pass out, or any other symptoms that are concerning to you Pelvic rest, no tampons or sex. I have sent an order electronically for you to have your hormone checked again in 2 days (Wednesday 01/24) Follow up with your OB Patient Language: [place]er Prescriptions: No Action ergocalciferol (vitamin D2) 1,250 mcg (50,000 unit) capsule 1,250 mcg PO DIRECTED Dulera 200-5 mcg/actuation HFA aerosol inhaler 1 inh INHALATION DIRECTED metformin 500 mg tablet PO labetalol 100 mg tablet 100 mg PO Q12H Qty: 180 2RF letrozole 2.5 mg tablet 5 mg PO DAILY 5 Days Qty: 10 5RF Rx Instructions: take on days 3 through 7 of your menstrual cycle Other Ambulatory Orders: Beta HCG Quantitative (Routine) Timeframe: 2 Days Location: Determined by Patient Ordered By: Carolann Gann Follow-up/Referrals: Madisyn Lomax MD [Physician, EQUIPMENT MAINTENANCE SUPERINTENDENT] PHYSICIAN NOT ON STAFF,NONSTAFF [Primary Care Provider]
== END 2025-01-22 18:50 | disposition home or self-care (01) ==
PROVIDERS: Emergency Provider Physician Assistant
DX: O20.0 Threatened abortion (principal); O09.521 Supervision of elderly multigravida, first trimester; O99.511 Diseases of the respiratory system complicating pregnancy, first trimester; J45.909 Unspecified asthma, uncomplicated; Z79.51 Long term (current) use of inhaled steroids; Z3A.01 Less than 8 weeks gestation of pregnancy
CPT/HCPCS: 36415; 80053; 84702; 85025; 85461; 85610; 85730; 86850; 86900; 86901; 99283

== ENCOUNTER 2025-01-24 10:13 | Outpatient (CLI) | payer OTHER, SELFPAY ==
[2025-01-24 11:21] LABS: Beta HCG Quantitative 99.77 mIU/ML
== END 2025-01-24 10:14 | disposition home or self-care (01) ==
PROVIDERS: Visit Provider Obstetrics & Gynecology
DX: N92.6 Irregular menstruation, unspecified (principal)
CPT/HCPCS: 36415; 84702

== ENCOUNTER 2025-01-26 08:21 | Outpatient (CLI) | payer OTHER, SELFPAY ==
--- OUTSIDE RECORDS SUMMARY | 2000-09-17 08:15 | XMS_ITS | Continuity of Care Document ---
Author Organization formerly [facility] Address [address] [place] [address] [address] [place] [address] Phone Care Team Providers Care Tile Sorter Name Role Phone Yu OD, Jules Unavailable Unavailable Advance Directives Directive Yes / No Effective Date File Name No Information Encounters Encounter Description Practice Location Reason(s) For Visit Diagnoses Date Provider Providers Copied on Encounter [facility], [address], [place], [place], [address], [place] tel:[phone] [facility] [place] No Information May-0 2-200 1 Yu OD Jules. [address] [facility] [place] , [address], [place], [address], [place]. tel:[phone] Family History Family Member Type Diagnosis Age [...]
--- OUTSIDE RECORDS SUMMARY | 2025-01-26 08:46 | XMS_ITS | Encounter Summary ---
Author Organization [facility] Address [address] [place] [address] Care Team Providers Care Senior Interactive Developer Name Role Phone Corinne Thayer MD Primary Care Provider [phone] Reason for Visit * Reason Onset Date Comments Lab Results 02/18/2024 Encounter Details Date Type Department Care Team (Late st Contact Info) Description 02/18/2024 [employer] Message Enc [facility] Medical Group Family Medicine - [address], [address] [place] [phone] Corinne Thayer MD [address] [facility] [address] [place] [address] Lab results Social History Tobacco Use [...] documented as of this encounter Care Teams Senior Interactive Developer Relationship Specialty Start Date End Date Corinne Thayer MD [address] [address] PCP - General FAMILY PRACTICE 02/17/24 documented as of this encounter
--- OUTSIDE RECORDS SUMMARY | 2025-01-26 08:46 | XMS_ITS | Encounter Summary ---
Author Organization [facility] Address [address] [place] [address] Care Team Providers Care Flask Handler Name Role Phone Corinne Thayer MD Primary Care Provider [phone] Encounter Details Date Type Department Care Team (Late st Contact Info) Description 05/27/2024 Smart Picture Technologiest Message Enc [facility] Family Medicine - [address], [address] [place] [phone] Corinne Thayer MD [facility] [address] [place] [address] Anxiety issues Social History Tobacco Use [...] documented as of this encounter Care Teams Flask Handler Relationship Specialty Start Date End Date Corinne Thayer MD [facility] [address] [place] [address] PCP - General FAMILY PRACTICE 02/17/24 documented as of this encounter
--- OUTSIDE RECORDS SUMMARY | 2025-01-26 08:46 | XMS_ITS | Encounter Summary ---
Author Organization [facility] Address [address] [place] [address] Care Team Providers Care Bulk Folder Name Role Phone Corinne Thayer MD Primary Care Provider [phone] Encounter Details Date Type Department Care Team (Late st Contact Info) Description 10/19/2024 XtremIO Message Enc [facility] Family Medicine - [address], [address] [place] [phone] Corinne Thayer MD [address] [place] [address] [place] [address] Shingles Social History Tobacco Use Types [...] documented as of this encounter Care Teams Bulk Folder Relationship Specialty Start Date End Date Corinne Thayer MD [address] [address] [place] [address] PCP - General FAMILY PRACTICE 02/17/24 documented as of this encounter
--- OUTSIDE RECORDS SUMMARY | 2025-01-26 08:46 | XMS_ITS | Clinical Summary ---
Author Organization [facility] Address [facility] [place] [address] Care Team Providers Care Cross Cut Saw Operator Name Role Phone Corinne Thayer MD Primary Care Provider [phone] Allergies Active Allergy Reactions Criticality Noted Date Comments Ndzbdpare-Fjprmiwmgr-Nr-Apap Other (see comment) Medium 02/17/2024 Medications letrozole [...] (BMI) of 36.0 to 36.9 in adult ([facility]) Take 1 tablet (500 mg total) by mouth 2 (two) times daily with meals. 180 tablet 1 5 Active Active Problems Problem Noted Date Diagnosed Date Asthma ([facility]) 02/17/2024 Assessment & Plan (02/17/2024 5:29 PM [...] currently trying to conceive, under direction of PIPE TESTER. Will avoid any teratogenic medications and minimize [...] Type Department Care Team Description 11/24/2024 Telephone [facility] Family Medicine [facility] [address] , [address] [place] [address] Corinne Thayer MD Prior Authorization [...] Comments Blood Pressure 116/84 07/23/2024 3:11 PM TIRE MOLD TESTER Pulse 95 07/23/2024 3:11 PM TIRE MOLD TESTER Temperature 36.2 C (97.1 F) 07/23/2024 3:11 PM TIRE MOLD TESTER Respiratory Rate 16 07/23/2024 3:11 PM TIRE MOLD TESTER Oxygen Saturation 98% 07/23/2024 3:11 PM TIRE MOLD TESTER Inhaled Oxygen Concentration - - Weight 89.8 kg (198 lb) 07/23/2024 3:11 PM TIRE MOLD TESTER Height 160 cm (5' 3) 07/23/2024 3:11 PM TIRE MOLD TESTER Body Mass Index 35.07 07/23/2024 3:11 PM TIRE MOLD TESTER Plan of Treatment Health Maintenance Due Date [...] 2018 Cervical Cancer Screening with HPV 2018 PHQ-2 (Physician [place]) 05/19/2024 02/17/2024 COVID-19 Vaccine (2023- 5 season) 2025 DTaP, Tdap and Td Vaccines ( 2 [...] patient's age to complete this topic Insurance [facility] MEDICAID Care Teams Cross Cut Saw Operator Relationship Specialty Start Date End Date Corinne Thayer MD [address] [place] [address] PCP - General FAMILY PRACTICE 02/17/24
[2025-01-26 09:27] LABS: Beta HCG Quantitative 140.97 mIU/ML
== END 2025-01-26 08:22 | disposition home or self-care (01) ==
LOC: ANHLAB 08:22
PROVIDERS: Visit Provider Obstetrics & Gynecology
DX: N92.6 Irregular menstruation, unspecified (principal)
CPT/HCPCS: 36415; 84702

== ENCOUNTER 2025-01-31 16:09 | Outpatient (CLI) | payer OTHER, SELFPAY ==
--- OUTSIDE RECORDS SUMMARY | 2000-09-17 08:15 | XMS_ITS | Continuity of Care Document ---
Author Organization [facility] Address [id number] [place] [address] [address] [place] [address] Phone Care Team Providers Care Base Filler Name Role Phone Yu OD, Jules Unavailable Unavailable Advance Directives Directive Yes / No Effective Date File Name No Information Encounters Encounter Description Practice Location Reason(s) For Visit Diagnoses Date Provider Providers Copied on Encounter [facility], [address], [place], [address], [place] tel:[phone] [facility] [place] No Information May-0 2-200 1 Yu OD Jules. [address] [facility] [place] , [address], [place], [address], [place]. tel:[phone] Family History Family Member Type Diagnosis Age At Onset No Information Payers Payer name Insurance type Covered green party ID Authoriza tion(s) No Information Social History [...]
[2025-01-31 17:20] LABS: Beta HCG Quantitative 324.77 mIU/ML
--- OUTSIDE RECORDS SUMMARY | 2025-01-31 18:46 | XMS_ITS | Clinical Summary ---
Author Organization [facility] Address [facility] [place] [address] Care Team Providers Care Manager Mall Name Role Phone Corinne Thayer MD Primary Care Provider [phone] Allergies Active Allergy Reactions Criticality Noted Date Comments Lykqqqvaz-Sstbktochl-Hs-Apap Other (see comment) Medium 02/17/2024 Medications letrozole [...] (BMI) of 36.0 to 36.9 in adult ([facility]) Take 1 tablet (500 mg total) by mouth 2 (two) times daily with meals. 180 tablet 1 5 Active Active Problems Problem Noted Date Diagnosed Date Asthma ([facility]) 02/17/2024 Assessment & Plan (02/17/2024 5:29 PM [...] currently trying to conceive, under direction of BUSINESS DEVELOPMENT SPECIALIST. Will avoid any teratogenic medications and minimize [...] Type Department Care Team Description 11/24/2024 Telephone [facility] Family Medicine [facility] [address] , [address] [place] [address] Corinne Thayer MD Prior Authorization [...] Comments Blood Pressure 116/84 07/23/2024 3:11 PM COIL FORMER Pulse 95 07/23/2024 3:11 PM COIL FORMER Temperature 36.2 C (97.1 F) 07/23/2024 3:11 PM COIL FORMER Respiratory Rate 16 07/23/2024 3:11 PM COIL FORMER Oxygen Saturation 98% 07/23/2024 3:11 PM COIL FORMER Inhaled Oxygen Concentration - - Weight 89.8 kg (198 lb) 07/23/2024 3:11 PM COIL FORMER Height 160 cm (5' 3) 07/23/2024 3:11 PM COIL FORMER Body Mass Index 35.07 07/23/2024 3:11 PM COIL FORMER Plan of Treatment Health Maintenance Due Date [...] Cancer Screening with HPV 2018 PHQ-2 (Physician [place]) 05/19/2024 02/17/2024 COVID-19 Vaccine (2023- 5 season) [...] patient's age to complete this topic Insurance [facility] [place] [id number] MEDICAID Care Teams Manager Mall Relationship Specialty Start Date End Date Corinne Thayer MD [address] [place] [address] PCP - General FAMILY PRACTICE 02/17/24
--- OUTSIDE RECORDS SUMMARY | 2025-01-31 18:47 | XMS_ITS | Encounter Summary ---
Author Organization [facility] Address [address] [place] [address] Care Team Providers Care Medical File Clerk Name Role Phone Corinne Thayer MD Primary Care Provider [phone] Encounter Details Date Type Department Care Team (Late st Contact Info) Description 05/27/2024 pycot Message Enc [facility] Family Medicine - [address], [address] [place] [phone] Corinne Thayer MD [facility] [address] [place] [address] Anxiety issues Social History Tobacco Use [...] documented as of this encounter Care Teams Medical File Clerk Relationship Specialty Start Date End Date Corinne Thayer MD [facility] [address] [place] [address] PCP - General FAMILY PRACTICE 02/17/24 documented as of this encounter
--- OUTSIDE RECORDS SUMMARY | 2025-01-31 18:47 | XMS_ITS | Encounter Summary ---
Author Organization [facility] Address [address] [place] [address] Care Team Providers Care Continuing Education Specialist Name Role Phone Corinne Thayer MD Primary Care Provider [phone] Reason for Visit * Reason Onset Date Comments Lab Results 02/18/2024 Encounter Details Date Type Department Care Team (Late st Contact Info) Description 02/18/2024 Oesia Message Enc [facility] Family Medicine - [address], [address] [place] [phone] Corinne Thayer MD [address] [facility] [address] [place] [address] Lab results Social History Tobacco Use [...] documented as of this encounter Care Teams Continuing Education Specialist Relationship Specialty Start Date End Date Corinne Thayer MD [address] [address] PCP - General FAMILY PRACTICE 02/17/24 documented as of this encounter
--- OUTSIDE RECORDS SUMMARY | 2025-01-31 18:47 | XMS_ITS | Encounter Summary ---
Author Organization [facility] Address [address] [place] [address] Care Team Providers Care Canvas Goods Maker Name Role Phone Corinne Thayer MD Primary Care Provider [phone] Encounter Details Date Type Department Care Team (Late st Contact Info) Description 10/19/2024 Tickade Message Enc [facility] Family Medicine - [address], [address] [place] [phone] Corinne Thayer MD [address] [place] [address] [place] [address] Shingles Social History Tobacco Use Types [...] documented as of this encounter Care Teams Canvas Goods Maker Relationship Specialty Start Date End Date Corinne Thayer MD [address] [place] [address] [place] [address] PCP - General FAMILY PRACTICE 02/17/24 documented as of this encounter
== END 2025-01-31 16:10 | disposition home or self-care (01) ==
PROVIDERS: Visit Provider Obstetrics & Gynecology
DX: O20.0 Threatened abortion (principal); Z3A.00 Weeks of gestation of pregnancy not specified
CPT/HCPCS: 36415; 84702

== ENCOUNTER 2025-02-02 09:38 | Outpatient (CLI) | payer OTHER, SELFPAY ==
[2025-02-02 10:33] LABS: Hematocrit 40.1 % (37.0-47.0); Hemoglobin 13.3 g/dL (12.0-15.0); Immature Granulocyte Percent A 0.6 % (0-0.5); Lymphocytes Absolute Auto 2.66 K/mm3 (0.9-3.2); Mean Corpuscular HGB Conc 33.2 g/dl (32-36); Mean Corpuscular Hemoglobin 29.4 pg (26-34); Mean Corpuscular Volume 88.5 fl (80-100); Nucleated Red Blood Cells Absolute Auto 0.000 K/mm3 (0.0-0.012); Nucleated Red Blood Cells Perc 0.0 % (0.0-0.2); Platelet Count Result 374 k/mm3 (150-375); Red Blood Count 4.53 M/mm3 (4.2-5.4); White Blood Count 10.7 K/mm3 (4.5-10.0)
[2025-02-02 10:56] LABS: Alanine Aminotransferase 20 U/L (6-35); Albumin Level 4.3 g/dL (3.5-5.1); Alkaline Phosphatase 74 U/L (38-126); Anion Gap 10 mmol/L (4-12); Aspartate Amino Transferase 24 U/L (14-36); Bilirubin,Total 0.5 mg/dL (0.2-1.3); Blood Urea Nitrogen 6 mg/dL (7-17); Calcium 8.9 mg/dL (8.4-10.2); Carbon Dioxide 22 mmol/L (22-30); Chloride 104 mmol/L (98-107); Estimated Glomerular Filt Rate > 60; Glucose 144 mg/dL (65-110); Potassium 3.4 mmol/L (3.4-5.0); Sodium 136 mmol/L (137-145); Total Protein 7.2 g/dL (6.3-8.2)
[2025-02-02 11:12] LABS: Beta HCG Quantitative 465.00 mIU/ML
== END 2025-02-02 09:39 | disposition home or self-care (01) ==
LOC: ANHLAB 09:39
PROVIDERS: Visit Provider Obstetrics & Gynecology
DX: O36.80X0 Pregnancy with inconclusive fetal viability, not applicable or unspecified (principal); Z3A.00 Weeks of gestation of pregnancy not specified
CPT/HCPCS: 36415; 80053; 84702; 85025

== ENCOUNTER 2025-02-07 12:42 | Outpatient (CLI) | payer OTHER, SELFPAY ==
--- OUTSIDE RECORDS SUMMARY | 2000-09-17 08:15 | XMS_ITS | Continuity of Care Document ---
Author Organization [facility] Address [address] [place] [address] [address] [place] [address] Phone Care Team Providers Care Fuel Agent Name Role Phone Yu OD, Jules Unavailable Unavailable Advance Directives Directive Yes / No Effective Date File Name No Information Encounters Encounter Description Practice Location Reason(s) For Visit Diagnoses Date Provider Providers Copied on Encounter [facility], [address], [place], [place], [address], [place] tel:[phone] [facility] [place] No Information May-0 2-200 1 Yu OD Jules. [address] [facility] [place] , [address], [place], [address], [place]. tel:[phone] Family History Family Member Type Diagnosis Age [...]
--- OUTSIDE RECORDS SUMMARY | 2025-02-07 13:08 | XMS_ITS | Encounter Summary ---
Author Organization [facility] Address [address] [place] [address] Care Team Providers Care Apple Picker Name Role Phone Corinne Thayer MD Primary Care Provider [phone] Encounter Details Date Type Department Care Team (Late st Contact Info) Description 10/19/2024 Air2Web Message Enc [facility] Family Medicine - [address], [address] [place] [phone] Corinne Thayer MD [address] [place] [address] [place] [address] Shingles Social History Tobacco Use Types [...] documented as of this encounter Care Teams Apple Picker Relationship Specialty Start Date End Date Corinne Thayer MD [address] [place] [address] [place] [address] PCP - General FAMILY PRACTICE 02/17/24 documented as of this encounter
--- OUTSIDE RECORDS SUMMARY | 2025-02-07 13:08 | XMS_ITS | Encounter Summary ---
Author Organization [facility] Address [address] [place] [address] Care Team Providers Care Practical Nursing Instructor Name Role Phone Corinne Thayer MD Primary Care Provider Reason for Visit * Reason Onset Date Comments Lab Results 02/18/2024 Encounter Details Date Type Department Care Team (Late st Contact Info) Description 02/18/2024 SovTech Message Enc [facility] Family Medicine - [address], [address] [place] [phone] Corinne Thayer MD [address] [facility] [address] [place] [address] Lab results Social History Tobacco Use [...] documented as of this encounter Care Teams Practical Nursing Instructor Relationship Specialty Start Date End Date Corinne Thayer MD [address] [address] PCP - General FAMILY PRACTICE 02/17/24 documented as of this encounter
--- OUTSIDE RECORDS SUMMARY | 2025-02-07 13:08 | XMS_ITS | Encounter Summary ---
Author Organization [facility] Address [address] [place] [address] Care Team Providers Care Leaf Conditioner Helper Name Role Phone Corinne Thayer MD Primary Care Provider [phone] Encounter Details Date Type Department Care Team (Late st Contact Info) Description 05/27/2024 Flowgramt Message Enc [facility] Family Medicine - [address], [address] [place] [phone] Corinne Thayer MD [facility] [address] [place] [address] Anxiety issues Social History Tobacco Use [...] documented as of this encounter Care Teams Leaf Conditioner Helper Relationship Specialty Start Date End Date Corinne Thayer MD [facility] [address] [place] [address] PCP - General FAMILY PRACTICE 02/17/24 documented as of this encounter
--- OUTSIDE RECORDS SUMMARY | 2025-02-07 13:08 | XMS_ITS | Clinical Summary ---
Author Organization [facility] Address [facility] [place] [address] Care Team Providers Care Cocktail Lounge Manager Name Role Phone Corinne Thayer MD Primary Care Provider [phone] Allergies Active Allergy Reactions Criticality Noted Date Comments Jpbrmsija-Xqgrfatqoi-Sy-Apap Other (see comment) Medium 02/17/2024 Medications letrozole [...] (BMI) of 36.0 to 36.9 in adult ([facility]) Take 1 tablet (500 mg total) by mouth 2 (two) times daily with meals. 180 tablet 1 5 Active Active Problems Problem Noted Date Diagnosed Date Asthma ([facility]) 02/17/2024 Assessment & Plan (02/17/2024 5:29 PM [...] currently trying to conceive, under direction of CLIENT ENGAGEMENT MANAGER. Will avoid any teratogenic medications and minimize [...] Type Department Care Team Description 11/24/2024 Telephone [facility] Family Medicine [facility] [address] , [address] [place] [address] Corinne Thayer MD Prior Authorization [...] Comments Blood Pressure 116/84 07/23/2024 3:11 PM SOFT METALS ENGRAVER HAND Pulse 95 07/23/2024 3:11 PM SOFT METALS ENGRAVER HAND Temperature 36.2 C (97.1 F) 07/23/2024 3:11 PM SOFT METALS ENGRAVER HAND Respiratory Rate 16 07/23/2024 3:11 PM SOFT METALS ENGRAVER HAND Oxygen Saturation 98% 07/23/2024 3:11 PM SOFT METALS ENGRAVER HAND Inhaled Oxygen Concentration - - Weight 89.8 kg (198 lb) 07/23/2024 3:11 PM SOFT METALS ENGRAVER HAND Height 160 cm (5' 3) 07/23/2024 3:11 PM SOFT METALS ENGRAVER HAND Body Mass Index 35.07 07/23/2024 3:11 PM SOFT METALS ENGRAVER HAND Plan of Treatment Health Maintenance Due Date [...] Cancer Screening with HPV 2018 PHQ-2 (Physician [place]) 05/19/2024 02/17/2024 COVID-19 Vaccine (2023- 5 season) [...] age to complete this topic Insurance [facility] MEDICAID Care Teams Cocktail Lounge Manager Relationship Specialty Start Date End Date Corinne Thayer MD [address] [place] [address] PCP - General FAMILY PRACTICE 02/17/24
[2025-02-07 14:40] LABS: Beta HCG Quantitative 483.77 mIU/ML
== END 2025-02-07 12:43 | disposition home or self-care (01) ==
LOC: ANHLAB 12:43
PROVIDERS: Visit Provider Obstetrics & Gynecology
DX: O36.80X0 Pregnancy with inconclusive fetal viability, not applicable or unspecified (principal); Z3A.00 Weeks of gestation of pregnancy not specified
CPT/HCPCS: 36415; 84702

== ENCOUNTER 2025-02-10 13:10 | Outpatient (CLI) | payer OTHER, SELFPAY ==
--- OUTSIDE RECORDS SUMMARY | 2000-09-17 08:15 | XMS_ITS | Continuity of Care Document ---
Author Organization [facility] Address [address] [place] [address] [address] [place] [address] Phone Care Team Providers Care Cto Name Role Phone Yu OD, Jules Unavailable Unavailable Advance Directives Directive Yes / No Effective Date File Name No Information Encounters Encounter Description Practice Location Reason(s) For Visit Diagnoses Date Provider Providers Copied on Encounter [facility], [address], [place], [place], [address], [place] tel:[phone] [facility] [place] No Information May-0 2-200 1 Yu OD Jules. [address] [facility] [place] , [address], [place], [address], [place]. tel:[phone] Family History Family Member Type Diagnosis Age [...]
[2025-02-10 14:11] LABS: Beta HCG Quantitative 276.73 mIU/ML
--- OUTSIDE RECORDS SUMMARY | 2025-02-10 15:59 | XMS_ITS | Encounter Summary ---
Author Organization [facility] Address [address] [place] [address] Care Team Providers Care Sustainability Purchasing Agent Name Role Phone Corinne Thayer MD Primary Care Provider [phone] Encounter Details Date Type Department Care Team (Late st Contact Info) Description 10/19/2024 Vertishear Message Enc [facility] Family Medicine - [address], [address] [place] [phone] Corinne Thayer MD [address] [place] [address] [place] [address] Shingles Social History Tobacco Use Types [...] documented as of this encounter Care Teams Sustainability Purchasing Agent Relationship Specialty Start Date End Date Corinne Thayer MD [address] [place] [address] [place] [address] PCP - General FAMILY PRACTICE 02/17/24 documented as of this encounter
--- OUTSIDE RECORDS SUMMARY | 2025-02-10 15:59 | XMS_ITS | Encounter Summary ---
Author Organization [facility] Address [address] [place] [address] Care Team Providers Care Lead Former Name Role Phone Corinne Thayer MD Primary Care Provider [phone] Encounter Details Date Type Department Care Team (Late st Contact Info) Description 05/27/2024 Tutor Technologiest Message Enc [facility] Family Medicine - [address], [address] [place] [phone] Corinne Thayer MD [facility] [address] [place] [address] Anxiety issues Social History Tobacco Use [...] documented as of this encounter Care Teams Lead Former Relationship Specialty Start Date End Date Corinne Thayer MD [facility] [address] [place] [address] PCP - General FAMILY PRACTICE 02/17/24 documented as of this encounter
--- OUTSIDE RECORDS SUMMARY | 2025-02-10 15:59 | XMS_ITS | Clinical Summary ---
Author Organization [facility] Address [facility] [place] [address] Care Team Providers Care Mushroom Cultivator Name Role Phone Corinne Thayer MD Primary Care Provider [phone] Allergies Active Allergy Reactions Criticality Noted Date Comments Dpziynkqu-Lkwashtkfu-Nh-Apap Other (see comment) Medium 02/17/2024 Medications letrozole [...] 2 (two) times daily. 60 tablet 2 07/07/202 5 Active metFORMIN (GLUCOPHAGE) 500 MG tabletIndications:C lass 2 severe obesity due to excess calories with serious comorbidity and body mass index (BMI) of 36.0 to 36.9 in adult Take 1 tablet (500 mg total) by mouth 2 (two) times daily with meals. 180 tablet 1 Active Active Problems Problem Noted Date Diagnosed Date Asthma (HHS/HCC) 02/17/2024 Assessment & Plan (02/17/2024 5:29 PM [...] currently trying to conceive, under direction of ADMINISTRATION MANAGER. Will avoid any teratogenic medications and [...] Type Department Care Team Description 11/24/2024 Telephone [facility] Family Medicine - [place] [address] [facility], [address] [place] [address] Corinne Thayer MD Prior Authorization [...] Comments Blood Pressure 116/84 07/23/2024 3:11 PM SENIOR MANAGER ASSET PROTECTION Pulse 95 07/23/2024 3:11 PM SENIOR MANAGER ASSET PROTECTION Temperature 36.2 C (97.1 F) 07/23/2024 3:11 PM SENIOR MANAGER ASSET PROTECTION Respiratory Rate 16 07/23/2024 3:11 PM SENIOR MANAGER ASSET PROTECTION Oxygen Saturation 98% 07/23/2024 3:11 PM SENIOR MANAGER ASSET PROTECTION Inhaled Oxygen Concentration - - Weight 89.8 kg (198 lb) 07/23/2024 3:11 PM SENIOR MANAGER ASSET PROTECTION Height 160 cm (5' 3) 07/23/2024 3:11 PM SENIOR MANAGER ASSET PROTECTION Body Mass Index 35.07 07/23/2024 3:11 PM SENIOR MANAGER ASSET PROTECTION Plan of Treatment Health Maintenance Due Date [...] Cancer Screening with HPV 2018 PHQ-2 (Physician [place]) 05/19/2024 02/17/2024 COVID-19 Vaccine (2023- 5 season) [...] patient's age to complete this topic Insurance [facility] [place] [address] MEDICAID Care Teams Mushroom Cultivator Relationship Specialty Start Date End Date Corinne Thayer MD [address] [place] [address] PCP - General FAMILY PRACTICE 02/17/24
--- OUTSIDE RECORDS SUMMARY | 2025-02-10 15:59 | XMS_ITS | Encounter Summary ---
Author Organization [facility] Address [address] [place] [address] Care Team Providers Care Licensed Dispensing Optician Name Role Phone Corinne Thayer MD Primary Care Provider Reason for Visit * Reason Onset Date Comments Lab Results 02/18/2024 Encounter Details Date Type Department Care Team (Late st Contact Info) Description 02/18/2024 [employer] Message Enc [facility] Group Family Medicine - [address], [address] [place] [phone] Corinne Thayer MD 1512 [facility] [address] [place] [address] Lab results Social History Tobacco Use [...] documented as of this encounter Care Teams Licensed Dispensing Optician Relationship Specialty Start Date End Date Corinne Thayer MD [address] [address] PCP - General FAMILY PRACTICE 02/17/24 documented as of this encounter
== END 2025-02-10 13:11 | disposition home or self-care (01) ==
LOC: ANHLAB 13:11
PROVIDERS: Visit Provider Obstetrics & Gynecology
DX: O36.80X0 Pregnancy with inconclusive fetal viability, not applicable or unspecified (principal); Z3A.00 Weeks of gestation of pregnancy not specified
CPT/HCPCS: 36415; 84702

== ENCOUNTER 2025-02-18 13:11 | Outpatient (CLI) | payer SELFPAY ==
--- OUTSIDE RECORDS SUMMARY | 2000-09-17 08:15 | XMS_ITS | Continuity of Care Document ---
Author Organization [facility] Address [address] [place] [address] [address] [place] [address] Phone Care Team Providers Care Geophysical Party Chief Name Role Phone Yu OD, Jules Unavailable Unavailable Advance Directives Directive Yes / No Effective Date File Name No Information Encounters Encounter Description Practice Location Reason(s) For Visit Diagnoses Date Provider Providers Copied on Encounter [facility], [address], [place], [place], [address], [place] tel:[phone] [facility] [place] No Information May-0 2-200 1 Yu OD Jules. [address] [facility] [place] , [address], [place], [address], [place]. tel:[phone] Family History Family Member Type Diagnosis Age At Onset No Information Payers Payer name Insurance type Covered libertarian ID Authoriza tion(s) No Information Social History [...]
--- OUTSIDE RECORDS SUMMARY | 2025-02-18 13:15 | XMS_ITS | Clinical Summary ---
Author Organization [facility] Address [place] [address] Care Team Providers Care Corsetier Name Role Phone Corinne Thayer MD Primary Care Provider [phone] Allergies Active Allergy Reactions Criticality Noted Date Comments Aiopahhxi-Mkvgrwdujd-Ao-Apap Other (see comment) Medium 02/17/2024 Medications letrozole [...] currently trying to conceive, under direction of SUBSTATION OPERATOR. Will avoid any teratogenic medications and minimize [...] Type Department Care Team Description 11/24/2024 Telephone [facility] Family Medicine - [place] [address] [facility], [address] [place] [address] Corinne Thayer MD Prior Authorization [...] Comments Blood Pressure 116/84 07/23/2024 3:11 PM ROTARY DRILL OPERATOR Pulse 95 07/23/2024 3:11 PM ROTARY DRILL OPERATOR Temperature 36.2 C (97.1 F) 07/23/2024 3:11 PM ROTARY DRILL OPERATOR Respiratory Rate 16 07/23/2024 3:11 PM ROTARY DRILL OPERATOR Oxygen Saturation 98% 07/23/2024 3:11 PM ROTARY DRILL OPERATOR Inhaled Oxygen Concentration - - Weight 89.8 kg (198 lb) 07/23/2024 3:11 PM ROTARY DRILL OPERATOR Height 160 cm (5' 3) 07/23/2024 3:11 PM ROTARY DRILL OPERATOR Body Mass Index 35.07 07/23/2024 3:11 PM ROTARY DRILL OPERATOR Plan of Treatment Health Maintenance Due Date [...] Cancer Screening with HPV 2018 PHQ-2 (Physician [place]) 05/19/2024 02/17/2024 COVID-19 Vaccine ( - 2023-06 5 season) 2025 Influenza Adult (#1) 2025 03/23/2018 DTaP, Tdap and Td Vaccines ( 2 [...] patient's age to complete this topic Insurance [facility] MEDICAID Care Teams Corsetier Relationship Specialty Start Date End Date Corinne Thayer MD [address] [place] [address] PCP - General FAMILY PRACTICE 02/17/24
--- OUTSIDE RECORDS SUMMARY | 2025-02-18 13:15 | XMS_ITS | Encounter Summary ---
Author Organization [facility] Address [address] [place] [address] Care Team Providers Care Reimbursement Liaison Name Role Phone Corinne Thayer MD Primary Care Provider [phone] Reason for Visit * Reason Onset Date Comments Lab Results 02/18/2024 Encounter Details Date Type Department Care Team (Late st Contact Info) Description 02/18/[address] Message Enc [facility] Medical Group Family Medicine - [address], [address] [place] [phone] Corinne Thayer MD [address] [facility] [address] [place] [address] Lab results Social History Tobacco Use [...] documented as of this encounter Care Teams Reimbursement Liaison Relationship Specialty Start Date End Date Corinne Thayer MD [address] [address] PCP - General FAMILY PRACTICE 02/17/24 documented as of this encounter
--- OUTSIDE RECORDS SUMMARY | 2025-02-18 13:15 | XMS_ITS | Data Portability ---
Author Organization [facility] [employer], Main Office Address [address] [place] [address] Assessment No assessment recorded. Plan of Treatment Reminders Order Date Submit Date Provider Last Modified By Organization Details Last Modified Time Details Appointments None recorded. Lab rapid strep group A, throat [email or web address] [place] [address] Darryl Khanna, [place], [address], 4 14:26:00 culture, aerobic, throat 2023 024 [place] (Lab), [address] [place], [address], 4 09:38:14 hemoglobin A1C, fingerstick [address] Darryl Khanna, [place], [address], 3 12:40:14 iron + TIBC + ferritin, serum 2022 023 [email or web address] 3 [facility] (Lab), [address] [place], [address], 3 16:12:29 lipid panel, serum 2022 023 [email or web address] [facility] (Lab), [address] [place], [address], 3 08:12:19 CMP, serum or plasma [address] (Lab), [address] [place], [address], 3 08:12:19 vitamin B12 + folate, serum or blood [address] (Lab), [address] [place], [address], 3 08:12:19 Referral None recorded. Procedures None recorded. Surgeries None recorded. Imaging None recorded. Medication Orders phentermine 37.5 mg tablet 2022 023 [facility]/Pharmacy #[id number], [address], [place], [address], 3 17:12:49 Dulera 200 mcg-5 mcg/actuati on HFA aerosol inhaler 2022 023 [facility]/Pharmacy #[id number], [address], [place], [address], 3 12:15:42 Depo-Medrol 80 mg/mL suspension for injection 2022 023 [email or web address] 11 Not available 3 13:01:48 azithromyci n 250 mg tablet 2022 023 [facility]/Pharmacy #[id number], [address], [place], [address], 3 12:05:47 promethazin e-DM 6.25 mg-15 mg/5 mL oral syrup 2022 023 [facility]/Pharmacy #[id number], [address], [place], [address], 3 12:07:23 Vyvanse 40 mg capsule 2022 023 [email or web address] 11 [id number], [address] , [place], [address], 11:58:25 Patient TargetsNo targets recorded. Patient InstructionsNo instructions recorded. Reason for Referral None Reported. Results Created Date Observation Date Name Description Value Unit Range Abnormal Flag Note LastModifiedBy Organization Detail LastModifiedTime 06/19/1906/19/2022 TSH thyroid-stim ulating hormone 1.380 uIU/m L 0.465- 4.680 Not Available [facility] (Lab) [address] [place], [address], 06/19/2022 20:40:37 06/19/19 23 06/19/2022 B-HCG TOTAL , QUANT ITATI VE human chorionic gonadotropin <2.39 mIU/m L 0.00-4 .82 WEEKS OF PREGN PADMINI REFER ENCE RANGE S 4 420 TO 6,230 5 620 TO 29,30 0 6 3,660 TO 108,0 00 7 10,90 0 TO 148,0 00 8 30,70 0 TO 184,0 00 9 67,20 0 TO 169,0 00 10 30,00 0 TO 167,0 00 14 15,00 0 TO 92,10 0 15 10,60 0 TO 64,20 0 16 9,000 TO 52,80 0 17 6,700 TO 47,10 0 18 6,100 TO 42,10 0 19 6,800 TO 42,90 0 Not Available [facility] (Lab) [address] [place], [address], 06/19/2022 20:24:15 06/19/19 23 06/19/2022 pregn padmini test, urine HCG negati ve Not Available [facility] [address], [place], [address], 06/19/2022 14:15:59 09/26/19 23 09/25/2022 LIPID PANEL cholesterol 194 mg/dL 140-19 9 NIH ROGELIO NSUS RECOM MENDA TION FOR CHRISTIAN STERO L: ADULT CHILD LOW RISK: <200 <170 BORDE RLINE : <200- 239 ----- HIGH RISK: >240 >200 Not Available [facility] (Lab) [address] [place], [address], 09/25/2022 11:03:54 09/26/19 23 09/25/2022 LIPID PANEL triglyceride s 222 mg/dL 0-150 high NIH ROGELIO NSUS REPOR T RECOM MENDA TION FOR TRIGL YCERI SUZY: ADULT CHILD LOW RISK: <150 ----- BODER LINE: 150-1 99 ----- HIGH RISK: >200 ----- Not Available [facility] (Lab) [address] [place], [address], 09/25/2022 11:03:54 09/26/19 23 09/25/2022 LIPID PANEL HDL cholesterol 38 mg/dL 40- low Not Available [facility] (Lab) [address] [place], [address], 09/25/2022 11:03:54 09/26/19 23 09/25/2022 LIPID PANEL LDL cholesterol, calculated 112 mg/dL 0-130 NIH ROGELIO NSUS REPOR T RECOM MENDA TIONS FOR LDL: ADULT CHILD LOW RISK <130 <110 (OPTI MAL LDL) <100 ----- BORDE RLINE : 130-1 59 ----- HIGH RISK: >160 >130 A TRIGL YCERI DE RESUL T >400 INVAL IDATE S THE CALCU LATIO N FOR LDL FRACT IONAT ION - THE LDL RESUL T WILL NOT BE REPOR MECHE. Not Available [facility] (Lab) [address] [place], [address], 09/25/2022 11:03:54 09/26/19 23 09/25/2022 COMPR EHENS SHANTI METAB OLIC PANEL sodium 138 mmol/ L 137-14 5 Not Available [facility] (Lab) [address] [place], [address], 09/25/2022 11:04:05 09/26/19 23 09/25/2022 COMPR EHENS SHANTI METAB OLIC PANEL potassium 3.7 mmol/ L 3.5-5. 1 Not Available [facility] (Lab) [address] [place], [address], 09/25/2022 11:04:05 09/26/19 23 09/25/2022 COMPR EHENS SHANTI METAB OLIC PANEL chloride 104 mmol/ L 98-107 Not Available [facility] (Lab) [address] [place], [address], 09/25/2022 11:04:05 09/26/19 23 09/25/2022 COMPR EHENS SHANTI METAB OLIC PANEL carbon dioxide 25 mmol/ L 22-30 Not Available [facility] (Lab) [address] [place], [address], 09/25/2022 11:04:05 09/26/19 23 09/25/2022 COMPR EHENS SHANTI METAB OLIC PANEL anion gap 12.7 mmol/ L 14-22 low Not Available [facility] (Lab) [address] [place], [address], 09/25/2022 11:04:05 09/26/19 23 09/25/2022 COMPR EHENS SHANTI METAB OLIC PANEL glucose 98 mg/dL 70-99 Not Available [facility] (Lab) [address] [place], [address], 09/25/2022 11:04:05 09/26/19 23 09/25/2022 COMPR EHENS SHANTI METAB OLIC PANEL BUN 11 mg/dL 8-19 Not Available [facility] (Lab) [address] [place], [address], 09/25/2022 11:04:05 09/26/19 23 09/25/2022 COMPR EHENS SHANTI METAB OLIC PANEL creatinine 0.68 mg/dL 0.66-1 .25 Not Available [facility] (Lab) [address] [place], [address], 09/25/2022 11:04:05 09/26/19 23 09/25/2022 COMPR EHENS SHANTI METAB OLIC PANEL GFR >60 Refer ence Range : [place] GFR Healt hy Adult : >60 mL/mi n/1.7 3 m2 Chron ic Kidne y Disea se: 15-60 mL/mi n/1.7 3 m2 Kidne y Failu re: <15/m L/min /1.73 m2 www.n iddk. nih.g ov The MDRD study equat ion has not been valid ated in child scott <18 years of age; pregn ant women ; the elder ly >85 years of age; or in some racia l or ethni c subgr oups, such as Hispa nics. Outsi de the valid ated beto eters , estim ated GFR is less accur ate, requi ring clini amadou judgm ent on a case- by-ca se basis . Clini amadou inter preta tion for other races and ages must be made by the clini romelia. The MDRD study equat ion has not been valid ated for the evalu ation of serum creat inine relat ed to nutri vernon l statu s or medic ation usage . For perso ns <18 years of age, a pedia tric GFR calcu lator is avail able on the [facility] websi te: https ://jignesh yip.o rg/pr ofess ional s/kdo qi/gf r_cal culat or Not Available [facility] (Lab) [address] [place], [address], 09/25/2022 11:04:05 09/26/19 23 09/25/2022 COMPR EHENS SHANTI METAB OLIC PANEL alkaline phosphatase 58 U/L 38-126 Not Available [facility] (Lab) [address] [place], [address], 09/25/2022 11:04:05 09/26/19 23 09/25/2022 COMPR EHENS SHANTI METAB OLIC PANEL alanine aminotransfe rase 18 U/L 0-35 Not Available [facility] (Lab) [address] [place], [address], 09/25/2022 11:04:05 09/26/19 23 09/25/2022 COMPR EHENS SHANTI METAB OLIC PANEL aspartate aminotransfe rase 19 U/L 15-37 Not Available [facility] (Lab) [address] [place], [address], 09/25/2022 11:04:05 09/26/19 23 09/25/2022 COMPR EHENS SHANTI METAB OLIC PANEL bilirubin, total 0.40 mg/dL 0.20-1 .30 Not Available [facility] (Lab) [address] [place], [address], 09/25/2022 11:04:05 09/26/19 23 09/25/2022 COMPR EHENS SHANTI METAB OLIC PANEL calcium 9.1 mg/dL 8.4-10 .2 Not Available [facility] (Lab) [address] [place], [address], 09/25/2022 11:04:05 09/26/19 23 09/25/2022 COMPR EHENS SHANTI METAB OLIC PANEL total protein 7.1 g/dL 6.3-8. 2 Not Available [facility] (Lab) [address] [place], [address], 09/25/2022 11:04:05 09/26/19 23 09/25/2022 COMPR EHENS SHANTI METAB OLIC PANEL albumin 4.3 g/dL 3.4-5. 0 Not Available [facility] (Lab) [address] [place], [address], 09/25/2022 11:04:05 09/26/19 23 09/25/2022 COMPR EHENS SHANTI METAB OLIC PANEL globulin 2.8 g/dL 2.6-4. 2 Not Available [facility] (Lab) [address] [place], [address], 09/25/2022 11:04:05 09/26/19 23 09/25/2022 COMPR EHENS SHANTI METAB OLIC PANEL A/G ratio 1.5 ratio 1.0-2. 0 Not Available [facility] (Lab) [address] [place], [address], 09/25/2022 11:04:05 09/26/19 23 09/25/2022 IRON/ TIBC PANEL total iron binding capacity 419 mcg/d L 265-47 5 Not Available [facility] (Lab) [address] [place], [address], 09/25/2022 11:12:24 09/26/19 23 09/25/2022 IRON/ TIBC PANEL % transferrin saturation 23 % 20-55 Not Available [facility] (Lab) [address] [place], [address], 09/25/2022 11:12:24 09/26/19 23 09/25/2022 IRON/ TIBC PANEL unsaturated iron bind capacity 321 mcg/d L 126-38 2 Not Available [facility] (Lab) [address] [place], [address], 09/25/2022 11:12:24 09/26/19 23 09/25/2022 IRON/ TIBC PANEL iron 98 mcg/d L 42-175 Not Available [facility] (Lab) [address] [place], [address], 09/25/2022 11:12:24 09/26/19 23 09/25/2022 VITAM IN B12 (ELÍAS GABRIELLA ) vb12 308 pg/mL 239-93 1 Not Available [facility] (Lab) [address] [place], [address], 09/25/2022 11:45:19 09/26/19 23 09/26/2022 TAZ TIN ferritin 14 NG/mL 6.24-1 37 Not Available [facility] (Lab) [address] [place], [address], 09/26/2022 22:32:14 09/26/19 23 09/27/2022 FOLAT E, SERUM /PLAS MA folate 15.6 NG/mL 2.76-2 0.0 Not Available [facility] (Lab) [address] [place], [address], 09/27/2022 08:14:20 04/07/20 23 04/07/2023 hemog lobin A1C, finge rstic k HgbA1C 5.5 Not Available [address] Darryl Khanna, [place], [address], 04/03/2023 17:01:03 09/17/19 24 09/17/2023 rapid strep group A, throa t STREP A negati ve Not Available [address] Darryl Khanna, [place], [address], 09/17/2023 11:20:43 06/25/19 23 US, head + neck, soft tissu e [facility] [address] [place] [address] [phone] Patien t Name: RAHEEM MAK Luci Access ion #: [id number] Sex: F : 1990 8 Locati on: RA2 Attend ing Physic clif: PENG CARRERA Orderi ng Physic clif: PENG CARRERA Exam Date: 06/25/19 23 12:04 PM Exam Name: US NECK/H EAD SOFT TISSUE Admitt ing Diagno sis(es ): RADIOL OGY REPORT - FINAL EXAM: US NECK/H EAD SOFT TISSUE HISTOR Y: goiter COMPAR AMANDA: None. TECHNI QUE: Ultras ound evalua tion of the thyroi d gland was perfor med. FINDIN GS: Right thyroi d lobe: The right lobe of the thyroi d gland measur es 4.9 x 1.1 x 1.4 cm. The thyroi d parenc hyma is homoge neous demons tratin g a 0.5 cm simple cyst within the inferi or aspect of the right thyroi d lobe. No abnorm al color Dopple r blood flow or suspic ious calcif icatio ns. Left thyroi d lobe: The left lobe of the thyroi d gland measur es 4.1 x 1.6 x Page 1 of 2 [facility] Name: RAHEEM MAK Access ion #: [id number] Sex: F : 1990 6 Exam Date: 06/25/19 12:04 PM Exam Name: US NECK/H EAD SOFT TISSUE Admitt ing Diagno sis(es ): 1.7 cm. The thyroi d parenc hyma is homoge neous withou t solid nodule s or cystic lesion s. No abnorm al color Dopple r blood flow or suspic ious calcif icatio ns. Isthmu s: The thyroi d isthmu s measur es 0.3 mm in width. The thyroi d parenc hyma is homoge neous withou t solid nodule s or cystic lesion s. No abnorm al color Dopple r blood flow or suspic ious calcif icatio ns. IMPRES CHAIM: Ti-Rad s 1: Benign . No recomm endati ons for follow up. Create d and electr onical ly signed by: Luis sellers MD Signed Date: 06/25/19 1:02 PM (CT) Dictat ed by: Luis sellers MD (CT) (CT) Page 2 of 2 [id number] [facility] (Imaging) [address] [place], [address], 07/17/2022 08:54:03 06/25/19 2022 US, thyro id No observ ation record ed. [id number] [facility] [address], [place], [address], 07/17/2022 08:54:03 11/12/19 23 11/11/2022 US, pelvi s, trans abdom inal + trans vagin al No observ ation record ed. [address], [place], [address], 11/12/2022 08:24:22 11/27/19 23 11/26/2022 CT, chest , w/o contr ast No observ ation record ed. [address], [place], [address], 11/26/2022 17:04:52 10/06/19 24 10/06/2023 XR, hyste ana pingo gram No observ ation record ed. [email or web address] [address], [place], [address], 10/07/2023 08:45:14 Result Notes None recorded. Problems Name Problem SNOMED Code Status Onset Date Resolution Date Notes Provider Name and Address Organization Details Recorded Time Asthma 403719379 Active Not Available [facility] 3 01:37:18 Gastroesop hageal reflux disease 357894288 Active Not Available [facility] 3 01:37:18 Labyrinthi tis 21378790 Completed Not Available [facility] 3 08:48:56 Acute gastritis 50371247 Completed Not Available [facility] 3 08:48:57 Tension-ty pe headache 614952898 Completed Not Available [facility] 3 08:48:57 Viral syndrome 349851719 Completed Not Available [facility] 3 08:48:57 Hypertrigl yceridemia 444388961 Active 2017 Not Available [facility] 3 01:37:18 Binging Active 2018 Not Available [facility] 3 01:37:18 Anxiety 80107999 Active 2018 Not Available [facility] 3 01:37:18 Mixed anxiety and depressive disorder 443030612 Active 2018 Not Available [facility] 3 01:37:18 Vitamin D deficiency 95685337 Active 2018 Not Available [facility] 3 01:37:18 Unable to concentrat e 80067742 Active 2020 Not Available [facility] 3 01:37:18 Cobalamin deficiency 867499633 Active 2020 Not Available [facility] 3 01:37:18 COVID-19 094930233 Active 2020 Not Available [facility] 3 01:37:18 Disorder of vitamin B12 809165728 Active 2021 Not Available [facility] 3 01:37:18 Essential hypertensi on 72548634 Active 2022 Not Available [facility] 3 01:37:18 Attention deficit hyperactiv ity disorder, predominan tly inattentiv e type 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 Active 2022 Not Available [facility] 3 01:37:18 Hyperlipid emia 54252373 Active 2022 Not Available [facility] 3 01:37:18 Iron deficiency 65324288 Active 2022 Not Available [facility] 3 01:37:18 Obesity 085375600 Active 2022 Not Available [facility] 3 01:37:18 Backache 203365235 Active 2022 Not Available [facility] 3 01:37:18 Acute sinusitis 53348841 Active 2022 Peng Antunez MD [address], [place], [address] , [facility] 3 11:32:38 Bacterial conjunctiv itis 857457447 Active 2022 Peng Antunez MD [address], [address], [place], [address] , [facility] 3 09:56:12 Acute bronchitis 11357075 Active 2022 DEBBI Walker [address], [address], [place], [address] , [facility] 3 12:04:43 Acute right otitis media 268896193 Active 2022 DEBBI Walker [address], [address], [place], [address] , [facility] 3 12:06:15 Acute bilateral otitis media 594203886 Active 2022 Peng Antunez MD [address], [facility] [address], [place], [address] , [facility] 3 17:08:18 Dysuria 49103590 Active 2022 DEBBI Walker [address], [address], [place], [address] , [facility] 3 10:54:21 Sore throat 473213023 Active 2023 Janet Henderson RN [facility] [place] [facility] 4 11:20:53 Problem Notes None recorded. Procedures Surgical History Date Name Laterality Status Provider Name and Address Organization Details Recorded Time completed Not Available [facility] 0 07/17/2022 08:44:43 Imaging Results None recorded. Procedure Notes None recorded. Medical Equipment None Reported. Allergies Allergen ID Allergen Name Allergen Category Reaction Reaction Severity Criticality Documentation Date Start Date Code Code System Note Provider Name and Address Organization Details Recorded Time 93950 acetamino phen / dextromet horphan / doxylamin e / pseudoeph edrine medicatio n other moderate Not available 07/17/2022 49399 4 RxNorm Not Available [facility] 3 08:53:56 Medications Name Sig Start Date Stop Date Status Note LastModified by Organization Details LastModified Time cyclobenzap rine 10 mg tablet TAKE 1 TABLET BY MOUTH THREE TIMES A DAY NEEDED FOR MUSCLE SPASMS active Not Available Not Available No t Available amoxicillin 500 mg capsule 10/27 completed Not Available Not Available Not Available medroxyprog esterone 10 mg tablet TAKE 1 TABLET BY MOUTH EVERY DAY active Not Available Not Available No t Available promethazin e-DM 6.25 mg-15 mg/5 mL oral syrup Take 5 mL every 4 hours by oral route as needed for 10 days. active Not Available Not Available No t Available paroxetine 10 mg tablet 10/15 completed Not Available Not Available Not Available clindamycin HCl 300 mg capsule 12/22 completed Not Available Not Available Not Available azithromyci n 250 mg tablet TAKE 2 TABLETS BY MOUTH TODAY, THEN TAKE 1 TABLET DAILY FOR 4 DAYS active Not Available Not Available No t Available ibuprofen 800 mg tablet TAKE 1 TABLET BY MOUTH 3 TIMES A DAY 07/10 completed Not Available Not Available Not Available hydrocodone 5 mg-acetamin ophen 325 mg tablet TAKE 1 TABLET BY MOUTH EVERY 4 HOURS NEEDED FOR PAIN FOR 3 DAYS 04/01 completed Not Available Not Available Not Available prednisone 20 mg tablet TAKE 1 TABLET BY MOUTH TWICE A DAY MORNING AND EARLY AFTERNOON FOR 3 4 DAYS active Not Available Not Available No t Available amoxicillin 250 mg-potassiu m clavulanate 125 mg tablet 10/27 completed Not Available Not Available Not Available phentermine 37.5 mg tablet TAKE 1 TABLET BY MOUTH EVERY DAY.NOT COVERED BY INSURANCE active Not Available Not Available No t Available acetaminoph en 300 mg-codeine 30 mg tablet 12/23 completed Not Available Not Available Not Available ciprofloxac in 250 mg tablet TAKE 1 TABLET BY MOUTH EVERY 12 HOURS FOR 3 DAYS 04/01 completed Not Available Not Available Not Available Paxil 40 mg tablet Take 1 tablet every day by oral route for 30 days. 10/15 completed Not Available Not Available Not Available ciprofloxac in 500 mg tablet TAKE 1 TABLET BY MOUTH EVERY 12 HOURS FOR 10 DAYS active Not Available Not Available No t Available sulfamethox azole 800 mg-trimetho prim 160 mg tablet TAKE 1 TABLET BY MOUTH EVERY 12 HOURS FOR 10 DAYS active Not Available Not Available No t Available tramadol 50 mg tablet Take 1 tablet every 6 hours by oral route as needed. 03/27 completed Not Available Not Available Not Available amoxicillin 500 mg tablet TAKE 1 TABLET BY MOUTH 3 TIMES A DAY UNTIL GONE 07/10 completed Not Available Not Available Not Available Depo-Medrol 80 mg/mL suspension for injection Take 1 mL by injection route. 2022 active Not Available Not Available Not [facility] labronan ketorolac 10 mg tablet 10/15 completed Not Available Not Available Not Available oxycodone-a cetaminophe n 5 mg-325 mg tablet 1 TABLET ORALLY EVERY 12 HOURS NEEDED FOR PAIN, SEVERE 03/27 completed Not Available Not Available Not Available amoxicillin 875 mg tablet TAKE 1 TABLET BY MOUTH EVERY 12 HOURS FOR 10 DAYS active Not Available Not Available No t Available dextroamphe tamine-amph etamine ER 20 mg 24hr capsule,ext end release TAKE 1 CAPSULE BY MOUTH EVERY DAY active Not Available Not Available No t Available dicyclomine 20 mg tablet 10/15 completed Not Available Not Available Not Available benzonatate 100 mg capsule TAKE 1-2 CAPSULES BY MOUTH THREE TIMES A DAY 07/23 completed Not Available Not Available Not Available paroxetine 20 mg tablet TAKE 1 TABLET BY MOUTH EVERY DAY 08/27 completed Not Available Not Available Not Available cyanocobala min (vit B-12) 1,000 mcg/mL injection solution Inject 1 mL every month by subcutane ous route. 03/27 completed Not Available Not Available Not Available ferrous sulfate 325 mg (65 mg iron) tablet 10/15 completed Not Available Not Available Not Available neomycin-po lymyxin-dex ameth 3.5 mg/mL-10,00 0 unit/mL-0.1 % eye drops INSTILL 1 DROP INTO AFFECTED EYE(S) EVERY 3 TO 4 HOURS active Not Available Not Available No t Available buspirone 10 mg tablet TAKE 1 TABLET BY MOUTH TWICE A DAY active Not Available Not Available No t Available hydrochloro thiazide 12.5 mg capsule TAKE 1 CAPSULE BY MOUTH EVERY DAY active Not Available Not Available No t Available docusate sodium 100 mg capsule TAKE 1 CAPSULE BY MOUTH TWICE A DAY 04/01 completed Not Available Not Available Not Available dextroamphe tamine-amph etamine ER 10 mg 24hr capsule,ext end release TAKE 1 CAPSULE BY MOUTH EVERY DAY 04/24 completed Not Available Not Available Not Available hydroxyzine HCl 25 mg tablet Take 1 tablet twice a day by oral route as needed for 30 days. active Not Available Not Available No t Available norethindro ne acetate 1 mg-ethinyl estradiol 20 mcg tablet 07/10 completed Not Available Not Available Not Available ergocalcife rol (vitamin D2) 1,250 mcg (50,000 unit) capsule TAKE 1 CAPSULE BY MOUTH ONE TIME PER WEEK 2024 active Not Available Not Available Not Avai lable ibuprofen 600 mg tablet 06/11 completed Not Available Not Available Not Available letrozole 2.5 mg tablet TAKE 1 TABLET BY MOUTH EVERY DAY ON DAYS 3-7 OF YOUR CYCLE active Not Available Not Available No t Available methylpredn isolone 4 mg tablets in a dose pack TAKE 6 TABLETS ON DAY 1 DIRECTED ON PACKAGE AND DECREASE BY 1 TAB EACH DAY FOR A TOTAL OF 6 DAYS 12/22 completed Not Available Not Available Not Available labetalol 100 mg tablet TAKE 1 TABLET BY MOUTH EVERY 12 HOURS active Not Available Not Available No t Available albuterol sulfate HFA 90 mcg/actuati on aerosol inhaler INHALE 2 PUFFS BY MOUTH EVERY 4 HOURS NEEDED active Not Available Not Available No t Available ondansetron 4 mg disintegrat ing tablet DISSOLVE 1 TABLET ON THE TONGUE EVERY 6 HOURS NEEDED FOR NAUSEA/VO MITING active Not Available Not Available No t Available losartan 100 mg tablet TAKE 1 TABLET BY MOUTH EVERY DAY active Not Available Not Available No t Available sertraline 50 mg tablet TAKE 1 TABLET BY MOUTH EVERY DAY 07/10 completed Not Available Not Available Not Available naproxen 500 mg tablet 500 MG ORALLY TWICE A DAY NEEDED FOR PAIN 03/27 completed Not Available Not Available Not Available amoxicillin 875 mg-potassiu m clavulanate 125 mg tablet TAKE 1 TABLET BY MOUTH EVERY 12 HOURS UNTIL GONE 03/27 completed Not Available Not Available Not Available cyclobenzap rine 5 mg tablet TAKE 1 TABLET BY MOUTH 3 TIMES EVERY DAY 10/15 completed Not Available Not Available Not Available bupropion HCl XL 300 mg 24 hr tablet, extended release TAKE 1 TABLET BY MOUTH EVERY DAY 02/20 completed Not Available Not Available Not Available bupropion HCl XL 150 mg 24 hr tablet, extended release TAKE 1 TABLET BY MOUTH EVERY DAY FOR 7 DAYS active Not Available Not Available No t Available nitrofurant oin monohydrate /macrocryst als 100 mg capsule TAKE 1 CAPSULE BY MOUTH EVERY 12 HOURS FOR 5 DAYS 10/08 completed Not Available Not Available Not Available fenofibrate 160 mg tablet TAKE 1 TABLET BY MOUTH EVERY DAY 08/27 completed Not Available Not Available Not Available dexmethylph enidate ER 20 mg capsule,ext ended release - 50 Take 1 capsule every day by oral route. active Not Available Not Available No t Available losartan 100 mg-hydrochl orothiazide 12.5 mg tablet Take 1 tablet every day by oral route. 03/27 completed Not Available Not Available Not Available albuterol sulfate 2 puffs every 4-6 hours prn 10/15 completed Not Available Not Available Not Available Vyvanse 30 mg capsule TAKE 1 CAPSULE BY MOUTH EVERY DAY 08/22 completed Not Available Not Available Not Available Vyvanse 40 mg capsule TAKE 1 CAPSULE BY MOUTH EVERY DAY 03/27 completed Not Available Not Available Not Available levonorgest rel 1.5 mg tablet 07/10 completed Not Available Not Available Not Available Dulera 200 mcg-5 mcg/actuati on HFA aerosol inhaler INHALE 2 PUFFS BY MOUTH TWICE A DAY. RINSE MOUTH AFTER 2ND PUFF ALWAYS active Not Available Not Available No t Available Vascepa 1 gram capsule Take 2 capsules twice a day by oral route for 30 days. 01/05 completed Not Available Not Available Not Available Xulane 150 mcg-35 mcg/24 hr transdermal patch APPLY 1 PATCH ONTO THE SKIN WEEKLY 01/28 completed Not Available Not Available Not Available FC2 Female Condom active Not Available Not Available Not Available Wegovy 0.25 mg/0.5 mL subcutaneou s pen injector Inject 0.25 mg every week by subcutane ous route. 03/27 completed Not Available Not Available Not Available Vitals Date Recorded Body mass index (BMI) Body height Oxygen saturation Oxygen saturation in Arterial blood by Pulse oximetry Heart rate Body temperature Body weight Systolic And Diastolic Provider Name and Address Organization Details Last Updated DateTime 3 33.7 kg/m2 160.02 cm 98 % 98 % 120 /min 97.9 [degF] 74086.5 5 g 122/80 mm[Hg] Not Available [facility] 3 08:45:37 Date Recorded Body height Body mass index (BMI) Body weight Body temperature Heart rate Oxygen saturation Oxygen saturation in Arterial blood by Pulse oximetry Systolic And Diastolic Provider Name and Address Organization Details Last Updated DateTime 3 160.02 cm 32.9 kg/m2 38362.1 8 g 97.7 [degF] 116 /min 98 % 98 % 128/78 mm[Hg] YOUSIF He [facility] 3 15:58:11 Date Recorded Body height Body mass index (BMI) Body weight Body temperature Heart rate Oxygen saturation Oxygen saturation in Arterial blood by Pulse oximetry Systolic And Diastolic Provider Name and Address Organization Details Last Updated DateTime 3 160.02 cm 34.4 kg/m2 28457.9 2 g 97.8 [degF] 89 /min 98 % 98 % 126/84 mm[Hg] Gloria Hernadez MA [facility] 3 11:54:58 Date Recorded Body height Body mass index (BMI) Body weight Body temperature Heart rate Oxygen saturation Oxygen saturation in Arterial blood by Pulse oximetry Systolic And Diastolic Provider Name and Address Organization Details Last Updated DateTime 3 160.02 cm 34.4 kg/m2 78033.9 2 g 98.3 [degF] 91 /min 99 % 99 % 112/79 mm[Hg] Debo Perez MA [facility] 3 16:47:02 Social History Question Answer Notes LastModified by Organizat ion Details LastModified Time Tobacco Smoking Status Never Smoker Not Available [facility] 07/17/2022 08:44:15 What Is Your Level Of Caffeine Consumption? Occasional [id number] Information not available 07/17/2022 How Much Tobacco Do You Chew? None [id number] Information not available 07/17/2022 In The 14 Days Before Symptom Onset, Have You Had Close Contact With A Laboratory-confirm ed COVID-19 While That Case Was Ill? No [id number].[id number] Information not available 07/17/2022 In The 14 Days Before Symptom Onset, Have You Had Close Contact With A Person Who Is Under Investigation For COVID-19 While That Person Was Ill? No [id number].[id number] Information not available 07/17/2022 What Type Of Diet Are You Following? REGULAR [id number].[id number] 1258 Information not available 07/17/2022 Which Illicit Or Recreational Drugs Have You Used? None [id number].[id number] Information not available 07/17/2022 Have You Ever Been Counseled For Unhealthy Alcohol Use? No [id number].[id number] 0558 Information not available 07/17/2022 Has Tobacco Cessation Counseling Been Provided? No MIGRATION.[id number] 0155 Information not available 07/17/2022 Have You Recently Traveled Abroad? No [id number].[id number] 2241 Information not available 07/17/2022 Have You Used IV Drugs? No MIGRATION.[id number] 4076 Information not available 07/17/2022 Do You Have Any Dietary Restrictions? No MIGRATION.181448 0952 Information not available 07/17/2022 Sex: Unknown Functional Status Question Answer Note LastModified by Organizat ion Details LastModified Time Do you use any illicit or recreational drugs? Yes weed sometimes [id number].[id number] Information not available 07/17/2022 Do you or have you ever used any other forms of tobacco or nicotine? No MIGRATION.78411 63725 Information not available 07/17/2022 What is your level of alcohol consumption? Occasional MIGRATION.46473 50406 Information not available 07/17/2022 Do you or have you ever used smokeless tobacco? Never used smokeless tobacco MIGRATION.49083 17859 Information not available 07/17/2022 Do you or have you ever used e-cigarettes or vape? Never used electronic cigarettes MIGRATION.15713 65172 Information not available 07/17/2022 What is your exercise level? Moderate MIGRATION.71259 87874 Information not available 07/17/2022 Mental Status None recorded. Family History Relationship Description Onset Age of this Age Resolved Age Notes LastModified by Organization Details LastModified Time Mother Diabetes mellitus [id number] Not available 07/17/2022 08:44:44 Mother Non-alcoholi c fatty liver MIGRATION.[id number] Not available 07/17/2022 08:44:44 Sister Diabetes mellitus [id number] Not available 07/17/2022 08:44:44 Brother Diabetes mellitus [id number].706 [id number] Not available 07/17/2022 08:44:44 Maternal Grandmother Malignant neoplastic disease [id number].908 [id number] Not available 07/17/2022 08:44:44 Medical History Condition Response DEPRESSION (INCLUDING POST ) Y HEARTBURN / REFLUX Y ASTHMA Y SEIZURES/EPILEPSY Y HEADACHES/MIGRAINES Y BRONCHITIS Y Gynecological HistoryNo gynecological history recorded. Obstetrics History GPAL:G 0 P 0 0 0 0 Immunizations Vaccine Type Date Status Note Provider Nam e and Address Organization Details Recorded Time Tdap 11/22/2015 completed Not Available [facility] 12/11/2022 01:37:19 Influenza, split virus, quadrivalent, PF 03/23/2018 completed Not Available [facility] 01:37:19 Past Encounters Encounter ID Performer Location Encounter Start Date Encounter Closed Date Diagnosis/Indication Diagnosis SNOMED-CT Code Diagnosis ICD10 Code Diagnosis IMO Codes Diagnosis Note [id number] [facility] [place] [facility] [place] [address] [place] [address] 07/27/2020 00:00:00 07/27/2020 17:28:54 [id number] Peng Antunez MD [facility] Emily person [facility] [place] [address] [address] [address] 02/20/2021 00:00:00 02/20/2021 14:41:59 [id number] Peng Antunez MD [facility] [place] [facility] [place] [address] [address] 02/22/2021 00:00:00 02/22/2021 15:25:36 [id number] Peng Antunez MD [facility] Emily person [facility] [place] [address] 04/24/2021 00:00:00 04/24/2021 12:07:45 [id number] Peng Antunez MD [facility] [place] [facility] [place] [address] 05/01/2021 00:00:00 05/01/2021 12:37:54 [id number] Peng Antunez MD [facility] Emily person [facility] [place] [address] 05/08/2021 00:00:00 05/08/2021 13:52:30 [id number] Peng Antunez MD [facility] [place] [address] [place] [address] y , [place] [address] 2021 00:00:00 07/16/2021 20:14:20 [id number] [facility] [place] [facility] [place] [address] [place] [address] 07/10/2021 00:00:00 07/10/2021 12:16:45 [id number] Peng Antunez MD [facility] [place] [address] [place] [address] y , [place] [address] 08/07/2021 00:00:00 08/07/2021 16:26:46 [id number] Peng Antunez MD [facility] [place] [address] [place] [address] [place] [address] 09/05/2021 00:00:00 09/05/2021 12:42:51 [id number] Peng Antunez MD [facility] [place] [address] [place] [address] y , [place] [address] 10/03/2021 00:00:00 10/03/2021 13:43:34 [id number] Peng Antunez MD [facility] [place] [address] [place] [address] [place] [address] 10/08/2021 00:00:00 10/08/2021 12:13:51 [id number] Peng Antunez MD [facility] [place] [address] [place] [address] [place] [address] 10/16/2021 00:00:00 10/16/2021 20:43:19 [id number] Peng Antunez MD [facility] [place] [address], [place] [address] 10/31/2021 00:00:00 10/31/2021 14:58:17 [id number] Peng Antunez MD [facility] [place] [address], [place] [address] 12/05/2021 00:00:00 12/05/2021 15:46:23 [id number] [facility] [place] [facility] [place] [address], [place] [address] 01/04/2022 00:00:00 01/04/2022 15:33:58 [id number] Peng Antunez MD [facility] [place] [address] [place] [address] 02/06/2022 00:00:00 02/06/2022 13:19:55 [id number] Peng Antunez MD [facility] [place] [address] , [place] [address] 03/11/2022 00:00:00 03/11/2022 14:59:09 [id number] Peng Antunez MD [facility] [place] [address] [place] [address] 04/01/2022 00:00:00 04/02/2022 08:34:28 [id number] Peng Antunez MD [facility] [place] [address] , [place] [address] 06/19/2022 00:00:00 06/19/2022 21:22:45 [id number] Peng Antunez MD [facility] [place] [address] [place] [address] 07/10/2022 00:00:00 07/11/2022 05:50:15 [id number] Peng Antunez MD [facility] [place] [address] [place] [address] 08/22/2022 15:49:48 08/22/2022 16:14:33 Essential hypertension 46435615 I10 Attention deficit hyperactivity disorder, 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 F/u in 1-3 months depending on how she does with the 40 mg of vyvanse. Cobalamin deficiency 190 669196 E53.8 Hyperlipidemia 93008421 E78.5 Iron deficiency 50041928 E61.1 Anemia 774950264 D64.9 [id number] Peng Antunez MD [facility] Emily person [facility] [place] [address] 03/27/2023 11:47:50 03/27/2023 14:00:35 Acute bronchitis 22912532 J20.9 Acute righ t otitis media 076266606 H66.91 Asthma 691977381 J45.90 9 [id number] Peng Antunez MD [facility] Emily person [facility] [place] [address] 04/03/2023 16:33:43 04/04/2023 14:21:17 Backache 228720062 M54.9 Use NSAIDs and heat or ice and analgesic rubMay need to RTC for trigger point injections Family his tory of diabetes mellitus type 2 127671481 Z83.3 A1C is 5.5% Pt is not diabetic Acute bila teral otitis media 972878681 H66.93 Continue ciprofloxa joanie. Obesity 307217268 E66.9 F/u in 1 month [id number] Austin Callejas MD [facility] Emily person [facility] [place] [address] 09/17/2023 11:11:28 10/01/2023 15:16:33 Sore throat 313938415 J02.9 Health Concerns Section Related Observation LastModified by Organization Detai ls LastModified Time None Recorded Concern Status LastModified by Organization Details LastModified Time None Recorded Advance Directives Directive None Recorded Payers Insurance Date Sequence Insurance Name Policy Number Policy Talavera Covered Member ID Talavera Member ID Guarantor Name 01/06/2024 1 [facility] (MEDICAID HMO) [id number] Madisyn Mak [id number] Madisyn Mak 01/09/2024 2 [place] [employer] Madisyn Mak [id number] Madisyn Mak 01/09/2024 1 [facility] (O) [id number] Donovan Mak [id number] Madisyn Mak Notes Date Note Type Note Provider Name and Address Organization Details Recorded Time 08/22/2022 text/html Here today for check up. She is feeling a lot better. Has more energy is better. She is on vyvanse 30 mg and doing ok but may need a higher dosage. BP are doing better. No further headaches. Wants BW ordered. Peng Antunez MD [address], [place], [address], [employer] 08/23/2022 06:50:17 03/27/2023 text/html ROS as noted in the HPI right ear full , aches , no fever. has a cough DEBBI Walker [address], [place], [address], [employer] 03/30/2023 16:48:52 04/03/2023 text/html Here today c/o of back pain. It is lower back and around bra line. Uses lidocaine patches and use triderma pain relief. Not taking muscle relaxer. Trying not to take oral meds. Has used heat and not much help.Has weight concerns.Has a lot of DM in family and wants A1C checkedShe is having no s/s of DM.Has an ear infection and was put on cipro for this took a zpack and no help. Peng Antunez MD [address], [place], [address], [employer] 04/04/2023 07:01:35 OBGyn Episode No OBEpisode recorded.
--- OUTSIDE RECORDS SUMMARY | 2025-02-18 13:15 | XMS_ITS | Encounter Summary ---
Author Organization [facility] Address [address] [place] [address] Care Team Providers Care Label Folder Name Role Phone Corinne Thayer MD Primary Care Provider [phone] Encounter Details Date Type Department Care Team (Late st Contact Info) Description 10/19/2024 [employer] Message Enc [facility] Family Medicine - [address], [address] [place] [phone] Corinne Thayer MD [address] [place] [address] [place] [address] Shingles Social History Tobacco Use Types [...] documented as of this encounter Care Teams Label Folder Relationship Specialty Start Date End Date Corinne Thayer MD [address] [place] [address] [place] [address] PCP - General FAMILY PRACTICE 02/17/24 documented as of this encounter
--- OUTSIDE RECORDS SUMMARY | 2025-02-18 13:16 | XMS_ITS | Encounter Summary ---
Author Organization [facility] Address [address] [place] [address] Care Team Providers Care Youth Court Judge Name Role Phone Corinne Thayer MD Primary Care Provider [phone] Encounter Details Date Type Department Care Team (Late st Contact Info) Description 05/27/2024 [employer] Message Enc [facility] Family Medicine - [address], [address] [place] [phone] Corinne Thayer MD [facility] [address] [place] [address] Anxiety issues Social History Tobacco Use [...] documented as of this encounter Care Teams Youth Court Judge Relationship Specialty Start Date End Date Corinne Thayer MD [facility] [address] [place] [address] PCP - General FAMILY PRACTICE 02/17/24 documented as of this encounter
[2025-02-18 14:03] LABS: Beta HCG Quantitative 99.84 mIU/ML
== END 2025-02-18 13:12 | disposition home or self-care (01) ==
LOC: ANHLAB 13:12
PROVIDERS: Visit Provider Obstetrics & Gynecology
DX: O02.1 Missed abortion (principal)
CPT/HCPCS: 36415; 84702

== ENCOUNTER 2025-03-01 13:02 | Outpatient (CLI) | payer OTHER, SELFPAY ==
[2025-03-01 14:24] LABS: Beta HCG Quantitative 24.48 mIU/ML
== END 2025-03-01 13:03 | disposition home or self-care (01) ==
LOC: ANHLAB 13:04
PROVIDERS: Visit Provider Obstetrics & Gynecology
DX: O02.1 Missed abortion (principal)
CPT/HCPCS: 36415; 84702

== ENCOUNTER 2025-03-22 13:13 | Outpatient (CLI) | payer OTHER, SELFPAY ==
--- OUTSIDE RECORDS SUMMARY | 2000-09-17 07:15 | XMS_ITS | Continuity of Care Document ---
Author Organization [facility] Address [address] [place] [address] [address] [place] [address] Phone Care Team Providers Care Real Estate Underwriter Name Role Phone Yu OD, Jules Unavailable Unavailable Advance Directives Directive Yes / No Effective Date File Name No Information Encounters Encounter Description Practice Location Reason(s) For Visit Diagnoses Date Provider Providers Copied on Encounter [facility], [address], [place], [place], [address], [place] tel:[phone] [facility] [place] No Information May-0 2-200 1 Yu OD Jules. [address] [facility] [place] , [address], [place], [address], [place]. tel:[phone] Family History Family Member Type Diagnosis Age At Onset No Information Payers Payer name Insurance type Covered democrat ID Authoriza tion(s) No Information Social History Type Description Quantity Date Captured Comments Sex Female Smoking Status No Information Chief Complaint And Reason For Visit No Information Reason For Referral Reason For Referral No Information History Of Present Illness Encounter Date Complaint History Of Prese nt Illness No Information Functional Status Date Functional Assessmen t No Information Instructions Date Instruction Additional Infor mation No Information Assessments Type Assessment Date No Information Patient Care Teams Name Effective Dates (start - stop) Status Members No Information
--- OUTSIDE RECORDS SUMMARY | 2025-03-22 14:50 | XMS_ITS | Encounter Summary ---
Author Organization [facility] Address [address] [place] [address] Care Team Providers Care Automobile Relocation Engineer Name Role Phone Corinne Thayer MD Primary Care Provider [phone] Encounter Details Date Type Department Care Team (Late st Contact Info) Description 10/19/2024 [employer] Message Enc [facility] Family Medicine - [address], [address] [place] [phone] Corinne Thayer MD [address] [place] [address] [place] [address] Shingles Social History Tobacco Use Types [...] documented as of this encounter Care Teams Automobile Relocation Engineer Relationship Specialty Start Date End Date Corinne Thayer MD [address] [place] [address] [place] [address] PCP - General FAMILY PRACTICE 02/17/24 documented as of this encounter
--- OUTSIDE RECORDS SUMMARY | 2025-03-22 14:50 | XMS_ITS | Encounter Summary ---
Author Organization [facility] Address [address] [place] [address] Care Team Providers Care Utilities Equipment Repairer Name Role Phone Corinne Thayer MD Primary Care Provider [phone] Reason for Visit * Reason Onset Date Comments Lab Results 02/18/2024 Encounter Details Date Type Department Care Team (Late st Contact Info) Description 02/18/2024 [employer] Message Enc [facility] Medical [facility] Family Medicine - [address], [address] [place] [phone] Corinne Thayer MD [address] [facility] [address] [place] [address] Lab results Social History Tobacco Use [...] documented as of this encounter Care Teams Utilities Equipment Repairer Relationship Specialty Start Date End Date Corinne Thayer MD [address] [address] PCP - General FAMILY PRACTICE 02/17/24 documented as of this encounter
--- OUTSIDE RECORDS SUMMARY | 2025-03-22 14:50 | XMS_ITS | Encounter Summary ---
Author Organization [facility] Address [address] [place] [address] Care Team Providers Care Emotionally Impaired Teacher Name Role Phone Corinne Thayer MD Primary Care Provider [phone] Encounter Details Date Type Department Care Team (Late st Contact Info) Description 05/27/2024 [employer] Wellness Teamt Message Enc [facility] Medical [facility] Family Medicine - [address], [address] [place] [phone] Corinne Thayer MD [facility] [address] [place] [address] Anxiety issues Social History Tobacco Use [...] documented as of this encounter Care Teams Emotionally Impaired Teacher Relationship Specialty Start Date End Date Corinne Thayer MD [facility] [address] [place] [address] PCP - General FAMILY PRACTICE 02/17/24 documented as of this encounter
--- OUTSIDE RECORDS SUMMARY | 2025-03-22 14:50 | XMS_ITS | Clinical Summary ---
Author Organization [facility] Address [address] [place] [address] Care Team Providers Care [employer] Advisor Name Role Phone Corinne Thayer MD Primary Care Provider [phone] Allergies Active Allergy Reactions Criticality Noted Date Comments Dpqsqudrf-Lrnurrclyt-Ao-Apap Other (see comment) Medium 02/17/2024 Medications letrozole (FEMARA) 2.5 MG tablet Take 1 tablet by mouth daily. Active mometasone-formote rol (DULERA) 200-5 MCG/ACT Aerosol Inhale 2 puffs into the lungs. Active ZYRTEC ALLERGY 10 MG tablet Take 1 tablet (10 mg total) by mouth daily. 04/17/20 24 Active vitamin D2, ergocalciferol, (DRISDOL) 1.25 mg capsule Take 1 capsule (1.25 mg total) by mouth once a week. 07/06/19 25 Active fluticasone propionate (FLONASE) 50 MCG/ACT nasal spray 2 sprays by Each Nostril route as needed. 04/17/20 24 Active hydrOXYzine (ATARAX) 25 MG tablet Take 1 tablet (25 mg total) by mouth 2 (two) times daily as needed. Active ondansetron (ZOFRAN-ODT) 4 MG disintegrating tabletIndications: Nausea and vomiting in adult Take 1 tablet (4 mg total) by mouth every 8 (eight) hours as needed. 20 tablet 2 07/24/19 25 Active metFORMIN (GLUCOPHAGE) 500 MG tabletIndications: Class 2 severe obesity due to excess calories with serious comorbidity and body mass index (BMI) of 36.0 to 36.9 in adult Take 1 tablet (500 mg total) by mouth 2 (two) times daily with meals. 180 tablet 1 11/23/19 25 Active labetalol (NORMODYNE) 100 MG tabletIndications: Primary hypertension TAKE 1 TABLET BY MOUTH TWICE A DAY 180 tablet 1 02/29/20 25 Active labetalol (NORMODYNE) 100 MG tabletIndications: Essential hypertension Take 1 tablet (100 mg total) by mouth 2 (two) times daily. 60 tablet 2 11/23/19 25 025 Discontinued Active Problems Problem Noted Date Diagnosed Date Asthma 02/17/2024 Assessment & Plan (02/17/2024 5:29 PM [...] currently trying to conceive, under direction of MOBILE UI DESIGNER. Will avoid any teratogenic medications and minimize [...] Obesity (BMI 35.0-39.9 without comorbidity) 02/17/2024 02/17/2024 Immunizations Immunization Administration Dates Next Due Influenza [...] Comments Blood Pressure 116/84 07/23/2024 3:11 PM PROTECTOR PLATE ATTACHER Pulse 95 07/23/2024 3:11 PM PROTECTOR PLATE ATTACHER Temperature 36.2 C (97.1 F) 07/23/2024 3:11 PM PROTECTOR PLATE ATTACHER Respiratory Rate 16 07/23/2024 3:11 PM PROTECTOR PLATE ATTACHER Oxygen Saturation 98% 07/23/2024 3:11 PM PROTECTOR PLATE ATTACHER Inhaled Oxygen Concentration - - Weight 89.8 kg (198 lb) 07/23/2024 3:11 PM PROTECTOR PLATE ATTACHER Height 160 cm (5' 3) 07/23/2024 3:11 PM PROTECTOR PLATE ATTACHER Body Mass Index 35.07 07/23/2024 3:11 PM PROTECTOR PLATE ATTACHER Plan of Treatment Health Maintenance Due Date [...] Cancer Screening with HPV 2018 PHQ-2 (Physician [place]) 05/19/2024 02/17/2024 COVID-19 Vaccine (1 - 2024-2 6 season) 2025 Influenza Adult (#1) 2025 03/23/2018 DTaP, Tdap and Td Vaccines ( 2 - Td or Tdap) 11/21/2025 11/22/2015 Hepatitis A Vaccines Aged Out No long er eligible based on patient's age to complete this topic Meningococcal B Vaccine Aged Out No l onger eligible based on patient's age to complete this topic Meningococcal Vaccine Aged Out No vivian camelia eligible based on patient's age to complete this topic RSV Immunizations Under 20 Months Aged Out No longer eligible based on patient's age to complete this topic Insurance [facility] MEDICAID Care Teams [employer] Advisor Relationship Specialty Start Date End Date Corinne Thayer MD [address] [place] [phone] PCP - General FAMILY PRACTICE 02/17/24
[2025-03-22 16:48] LABS: Beta HCG Quantitative < 2.39 mIU/ML
== END 2025-03-22 13:14 | disposition home or self-care (01) ==
LOC: ANHLAB 13:15
PROVIDERS: Visit Provider Obstetrics & Gynecology
DX: O02.1 Missed abortion (principal)
CPT/HCPCS: 36415; 84702